=== PATIENT | female | born 1930 | race Caucasian/White ===

== ENCOUNTER 2017-03-20 11:09 | Emergency (ER) | payer MEDICARE, OTHER ==
[2017-03-20 11:16] VITALS: BP 125/65
[2017-03-20] MEDS ORDERED: methylPREDNISolone Sodium Succinate 125 MG/2 ML SDV IVPUSH ONE (11:24)
--- NOTE | 2017-03-20 11:31 | EDM.PDOC ---
ED HPI GENERAL MEDICAL PROBLEM - General Chief Complaint: Allergic Reaction Stated Complaint: allergic reaction Time Seen by Provider: 03/20/17 11:11 Source of Information: Reports: Patient, Family History Limitations: Reports: No Limitations - History of Present Illness INITIAL COMMENTS - FREE TEXT/NARRATIVE: History and physical: History of present illness: [Patient brought to the emergency room by her daughter. Patient complains of itching to her back, chest, and upper extremities for the past several days. She has developed some red itchy while. She has otherwise been well. She has been treated over the past couple of weeks for urinary tract infection with amoxicillin and Cipro. Patient has a history of penicillin allergy and was told to try taking the amoxicillin just once daily. No fever or chills, sore throat or headaches. No lightheadedness or dizziness. She denies chest pain shortness of breath and difficulty breathing. No abdominal pain nausea or vomiting. No other rashes or areas of itching to other parts of her body.] Review of Systems: As per history of present illness and below otherwise all systems reviewed and negative. Past medical history: As per history of present illness and as reviewed below otherwise noncontributory. Surgical history: As per history of present illness and is reviewed below other john noncontributory. Social history: No reported history of drug or alcohol abuse. Family history: As per history of present illness and is reviewed below otherwise noncontributory. Physical exam: HEENT: Atraumatic, normocephalic. Lungs: Clear to auscultation, breath sounds equal bilaterally. Heart: S1-S2, regular rate and rhythm. Abdomen: Soft, nondistended, nontender. Skin: Erythematous welts scattered to chest, back and upper extremities. Consistent in appearance with an allergic type reaction. Neuro: Awake, alert, oriented. Therapeutics: [Solu-Medrol 125 mg IM] Impression: [] Plan: [Discussed with patient that rash is consistent with an allergic reaction. Rx written for Medrol Dosepak sig: take as directed 0 refills. Solu-Medrol 125 mg given IM in the ER. Recommend Claritin or Zyrtec 10 mg daily, Zantac 150 mg twice a day, Benadryl as needed for itching. Follow-up with Dr. crews this week. Daughter is in agreement to this plan.] Definitive disposition and diagnosis is appropriate pending reevaluation and review of above. - Related Data Allergies Allergy/AdvReac Type Severity Reaction Status Date / Time KD Inhibitors Allergy Cough Verified 03/20/17 11:29 latex Allergy Rash Verified 03/20/17 11:29 omeprazole [From Prilosec] Allergy Cough Verified 03/20/17 11:29 omeprazole magnesium Allergy Cough Verified 03/20/17 11:29 [From Prilosec] Penicillins Allergy Rash Verified 03/20/17 11:29 Home Meds: Home Meds Clopidogrel [Plavix] 75 mg PO DAILY 08/11/15 [History] Loratadine [Claritin] 10 mg PO DAILY 08/11/15 [History] Metoprolol Tartrate 50 mg PO BID 08/11/15 [History] Sertraline HCl 50 mg PO DAILY 08/11/15 [History] atorvaSTATin [Lipitor] 5 mg PO DAILY 08/11/15 [History] Amoxicillin 500 mg PO DAILY 03/20/17 [History] Aspirin 325 mg PO DAILY 03/20/17 [History] Ciprofloxacin [Ciprofloxacin HCl] 250 mg PO BID 03/20/17 [History] Melatonin 3 mg PO DAILY 03/20/17 [History] Mirtazapine 15 mg PO BEDTIME 03/20/17 [History] [place]-3/DHA/Epa/Fish Oil [Fish Oil 1,000 mg Softgel] 1 tab PO DAILY 03/20/17 [ History] ED ROS ALLERGIC REACTION - Review of Systems Review Of Systems: ROS reveals no pertinent complaints other than HPI. ED EXAM GENERAL NO PERIP PULSE - Physical Exam Exam: See Below Course - Vital Signs Last Recorded V/S: Last Vital Signs Temp 99.1 F 03/20/17 11:10 Pulse 77 03/20/17 11:10 Resp 24 H 03/20/17 11:10 BP 125/65 03/20/17 11:10 Pulse Ox 98 03/20/17 11:10 - Orders/Labs/Meds Meds: Medications Discontinued Medications Generic Name Dose Route Start Last Admin Trade Name Freq PRN Reason Stop Dose Admin Methylprednisolone Sodium Succinate 125 mg 03/20/17 11:24 03/20/17 11:35 Solu-Medrol IVPUSH 03/20/17 11:25 Not Given ONETIME ONE Methylprednisolone Sodium Succinate 125 mg 03/20/17 11:33 03/20/17 11:36 Solu-Medrol IM 03/20/17 11:34 125 mg ONETIME ONE Administration Departure - Departure Time of Disposition: 11:40 Disposition: Home, Self-Care 01 Condition: Good Clinical Impression: Allergic reaction Qualifiers: Encounter type: initial encounter Qualified Code(s): T78.40XA - Allergy, unspecified, initial encounter - Discharge Information Referrals: Nathaniel Crews MD [Primary Care Provider] - Forms: ED Department Discharge Additional Instructions: The following information is given to patients seen in the emergency department who are being discharged home. This information is to outline your options for follow-up care and provides all patient seen in our emergency department with a follow-up referral. The need for follow-up, as well as the timing and circumstances, are variable depending upon the specifics of each emergency department visit. If you don't have a primary care physician on staff, we will provide you with a referral. We always advise to contact your personal physician following an emergency department visit to inform them of the circumstances of the visit and for follow-up with them and/or the need for any referrals to a consulting specialist. The emergency department will also refer you to a specialist when appropriate. This referral assures that you have the opportunity for follow-up care with a specialist. All of these measures are taken in an effort to provide you with optimal care, which includes your follow-up. Under all circumstances we always encourage you to contact your private physician who remains a resource for coordinating your care. When calling for follow-up care, please make the office aware that this follow-up is from your recent emergency room visit. If for any reason you are refused follow-up please contact the [facility] emergency department at [phone] and ask to speak to the emergency department nurse. [facility] [address] [address] Follow-up with PCP in 48-72 hours. Stop Cipro and amoxicillin. Take medications as prescribed. Return to ER as needed as discussed.
[2017-03-20] MEDS ORDERED: methylPREDNISolone Sodium Succinate 125 MG/2 ML SDV IM ONE (11:33)
== END 2017-03-20 11:51 | disposition home or self-care (01) ==
LOC: CC.ED 11:09
DX: L27.0 Generalized skin eruption due to drugs and medicaments taken internally (principal); T36.0X5A Adverse effect of penicillins, initial encounter; Z91.040 Latex allergy status; Z88.0 Allergy status to penicillin; Z88.8 Allergy status to other drugs, medicaments and biological substances; Z79.899 Other long term (current) drug therapy; Z79.82 Long term (current) use of aspirin
CPT/HCPCS: 96372; 99282; J2930

== ENCOUNTER 2017-04-18 11:03 | Inpatient (IN) | payer MEDICARE, OTHER ==
[2017-04-18] MEDS ORDERED: Temazepam 15 MG Cap PO PRN (12:46)
[2017-04-18] MEDS ORDERED: Acetaminophen 325 MG Tab PO PRN (12:46)
[2017-04-18] MEDS ORDERED: Ondansetron 4 MG Tab.DIS PO PRN (12:46)
[2017-04-18] MEDS ORDERED: Sodium Chloride 0.9% 10 ML Syringe FLUSH PRN (12:46)
[2017-04-18] MEDS ORDERED: Ondansetron 4 MG/2 ML SDV IV PRN (12:46)
[2017-04-18] MEDS ORDERED: Nitroglycerin 0.4 MG Tab.SL SL PRN (12:55)
[2017-04-18] MEDS ORDERED: Enoxaparin 30 MG/0.3 ML Syringe SUBCUT SCH (13:00)
[2017-04-18] MEDS ORDERED: Nitroglycerin 0.4 MG Tab.SL SL SCH (13:00)
[2017-04-18] MEDS: Metoprolol Tartrate 50 MG Tab PO SCH (20:25)
[2017-04-18] MEDS: Mirtazapine 15 MG Tab PO SCH (20:25)
[2017-04-19] MEDS: Sertraline 25 MG Tab PO SCH (08:07)
[2017-04-19] MEDS: Aspirin 81 MG Tab.EC PO SCH (08:08)
[2017-04-19] MEDS: Metoprolol Tartrate 50 MG Tab PO SCH ×2 (08:08→20:16)
[2017-04-19] MEDS: Clopidogrel 75 MG Tab PO SCH (08:09)
[2017-04-19] MEDS: atorvaSTATin 10 MG Tab PO SCH (08:11)
[2017-04-19] MEDS: Lactated Ringers 1,000 ML IV SCH ×2 (08:16→21:46)
[2017-04-19] MEDS: cefTRIAXone 1 GM Vial IVPUSH SCH (08:18)
--- NOTE | 2017-04-19 13:01 | PCM.PN ---
- General Info Date of Service: 04/19/17 Admission Dx/Problem (Free Text): UTI Weakness Functional Status: Reports: Pain Controlled, Tolerating Diet, Ambulating - Review of Systems General: Reports: Weakness, Fatigue. Denies: Fever HEENT: Reports: No Symptoms Pulmonary: Denies: Shortness of Breath, Cough, Wheezing Cardiovascular: Denies: Chest Pain, Edema, Lightheadedness Gastrointestinal: Denies: Abdominal Pain, Decreased Appetite, Diarrhea, Nausea, Vomiting Genitourinary: Reports: No Symptoms Musculoskeletal: Reports: No Symptoms Skin: Reports: No Symptoms Neurological: Reports: No Symptoms Psychiatric: Reports: Depression - Patient Data Vitals - Most Recent: Last Vital Signs Temp 97.5 F 04/19/17 07:44 Pulse 79 04/19/17 08:08 Resp 18 04/19/17 07:44 BP 165/95 H 04/19/17 08:08 Pulse Ox 93 L 04/19/17 07:44 Weight - Most Recent: 112 lb 12.8 oz I&O - Last 24 Hours: Intake & Output 04/18/17 04/19/17 04/19/17 22:59 06:59 14:59 Intake Total 250 Output Total 150 350 Balance -150 -100 Lab Results Last 24 Hours: Laboratory Results - last 24 hr 04/18/17 04/18/17 04/18/17 Range/Units 12:46 13:01 13:01 WBC 9.0 (5.0-10.0) 10^3/uL RBC 4.35 (4.00-5.50) 10^6/uL Hgb 13.0 (12.0-16.0) g/dL Hct 40.3 (37.0-47.0) % MCV 92.6 (82.0-94.0) fL MCH 29.9 (27.0-32.0) pg MCHC 32.3 L (33.0-38.0) g/dL RDW Coeff of Marcelo 14.9 (11.0-15.0) % Plt Count 354 (150-400) 10^3/uL Neut % (Auto) 79.1 (35-85) % Lymph % (Auto) 11.2 (10-55) % [place] % (Auto) 7.1 (0-16) % Eos % (Auto) 2.3 (0-5) % Baso % (Auto) 0.3 (0-3) % Neut # (Auto) 7.08 H (1.80-7.00) 10^3/uL Lymph # (Auto) 1.00 (1.00-4.80) 10^3/uL [place] # (Auto) 0.64 (0.00-0.80) 10^3/uL Eos # (Auto) 0.21 (0.00-0.45) 10^3/uL Baso # (Auto) 0.03 10^3/uL Sodium 140 (136-145) mEq/L Potassium 4.2 (3.5-5.0) mEq/L Chloride 105 (98-106) mEq/L Carbon Dioxide 27 (21-32) mmol/L BUN 19 H (7-18) mg/dL Creatinine 1.0 (0.6-1.0) mg/dL Est Cr Clr Drug Dosing 30.81 mL/min Estimated GFR (MDRD) 52 L (>=60) mL/min Glucose 114 H (75-99) mg/dL Calcium 9.1 (8.4-10.1) mg/dL Urine Color Yellow (YELLOW) Urine Appearance Clear (CLEAR) Urine pH 7.0 (4.5-8.0) Ur Specific [place] 1.012 (1.003-1.020) Urine Protein Negative (NEGATIVE) mg/dL Urine Glucose (UA) Negative (NEGATIVE) mg/dL Urine Ketones Negative (NEGATIVE) mg/dL Urine Occult Blood Small H (NEGATIVE) Urine Nitrite Negative (NEGATIVE) Urine Bilirubin Negative (NEGATIVE) Urine Urobilinogen 0.2 (0.2-1.0) EU/dL Ur Leukocyte Esterase Negative (NEGATIVE) Urine RBC 5-10 H (0-5) /HPF Urine WBC 0-5 (0-5) /HPF Ur Squamous Epith Cells Occasional H (NOT SEEN) /HPF Urine Bacteria Occasional H (NOT SEEN) /HPF Med Orders - Current: Current Medications Acetaminophen (Tylenol) 650 mg PO Q4H PRN PRN Reason: Pain (Mild 1-3)/fever Aspirin (Halfprin) 81 mg PO DAILY SKIP Last Admin: 04/19/17 08:08 Dose: 81 mg Atorvastatin Calcium (Lipitor) 5 mg PO DAILY [facility] Last Admin: 04/19/17 08:11 Dose: 5 mg Ceftriaxone Sodium (Rocephin) 1 gm IVPUSH Q24H [facility] Last Admin: 04/19/17 08:18 Dose: 1 gm Clopidogrel Bisulfate (Plavix) 75 mg PO DAILY [facility] Last Admin: 04/19/17 08:09 Dose: 75 mg Enoxaparin Sodium (Lovenox) 30 mg SUBCUT Q24H [facility] Lactated Ringer's (Ringers, Lactated) 1,000 mls @ 75 mls/hr IV ASDIRECTED [facility] Last Admin: 04/19/17 08:16 Dose: 75 mls/hr Metoprolol Tartrate (Lopressor) 50 mg PO BID [facility] Last Admin: 04/19/17 08:08 Dose: 50 mg Mirtazapine (Remeron) 15 mg PO BEDTIME [facility] Last Admin: 04/18/17 20:25 Dose: 15 mg Nitroglycerin (Nitrostat) 0.4 mg SL ASDIRECTED PRN PRN Reason: CHEST PAIN Ondansetron HCl (Zofran Odt) 4 mg PO Q4H PRN PRN Reason: nausea, able to take PO Ondansetron HCl (Zofran) 4 mg IV Q4H PRN PRN Reason: Nausea/Vomiting Sertraline HCl (Zoloft) 50 mg PO DAILY [facility] Last Admin: 04/19/17 08:07 Dose: 50 mg Sodium Chloride (Saline Flush) 10 ml FLUSH ASDIRECTED PRN PRN Reason: Keep Vein Open Temazepam (Restoril) 15 mg PO BEDTIME PRN PRN Reason: Sleep Discontinued Medications Enoxaparin Sodium (Lovenox) 30 mg SUBCUT Q24H [facility] Last Admin: 04/18/17 14:11 Dose: 30 mg Nitroglycerin (Nitrostat) 0.4 mg SL ASDIRECTED [facility] - Exam General: Alert, Oriented HEENT: Mucous Membr. Moist/[place] Neck: Supple Lungs: Clear to Auscultation, Normal Respiratory Effort Cardiovascular: Regular Rate, Regular Rhythm, Murmurs GI/Abdominal Exam: Normal Bowel Sounds, Soft, Non-Tender Back Exam: Normal Inspection Extremities: Normal Inspection, No Pedal Edema Skin: Warm, Dry Neurological: No New Focal Deficit - Problem List & Annotations (1) UTI (urinary tract infection) SNOMED Code(s): 37678033 Code(s): N39.0 - URINARY TRACT INFECTION, SITE NOT SPECIFIED Status: Acute Priority: High Current Visit: Yes Qualifiers: Urinary tract infection type: acute cystitis - Problem List Review Problem List Initiated/Reviewed/Updated: Yes - My Orders Last 24 Hours: My Active Orders 04/18/17 12:46 Patient Status [ADT] Routine Oxygen Therapy [RC] .PRN Up With Assistance [RC] .PRN Vital Signs [RC] 0000,0400,0800,1200,1600,2000 PT Evaluation and Treatment [CONS] Routine Acetaminophen [Tylenol] 650 mg PO Q4H PRN Ondansetron [Zofran ODT] 4 mg PO Q4H PRN Ondansetron [Zofran] 4 mg IV Q4H PRN Sodium Chloride 0.9% [Saline Flush] 10 ml FLUSH ASDIRECTED PRN Temazepam [Restoril] 15 mg PO BEDTIME PRN Saline Lock Insert [OM.PC] Routine Resuscitation Status Routine 04/18/17 12:47 Intake and Output [RC] 0600,1800 04/18/17 12:55 Nitroglycerin [Nitrostat] 0.4 mg SL ASDIRECTED PRN 04/18/17 20:00 Metoprolol Tartrate [Lopressor] 50 mg PO BID Mirtazapine [Remeron] 15 mg PO BEDTIME 04/18/17 Lunch Regular Diet [DIET] 04/19/17 07:45 Lactated Ringers [Ringers, Lactated] 1,000 ml IV ASDIRECTED 04/19/17 08:00 Aspirin [Halfprin] 81 mg PO DAILY Clopidogrel [Plavix] 75 mg PO DAILY Sertraline [Zoloft] 50 mg PO DAILY atorvaSTATin [Lipitor] 5 mg PO DAILY cefTRIAXone [Rocephin] 1 gm IVPUSH Q24H 04/19/17 20:00 Enoxaparin [Lovenox] 30 mg SUBCUT Q24H - Assessment Assessment:: UTI Weakness - Plan Plan:: Patient is stable today. Denies any complaints. Afebrile. Blood pressure is elevated today at 165/95. Tolerating meals. Voiding frequently. Labs stable. Will continue with IV fluids today and Rocephin. Probable disharge in am.
[2017-04-19] MEDS ORDERED: Enoxaparin 30 MG/0.3 ML Syringe SUBCUT SCH (20:00)
[2017-04-19] MEDS: Mirtazapine 15 MG Tab PO SCH (20:16)
[2017-04-20] MEDS: Sertraline 25 MG Tab PO SCH (07:46)
[2017-04-20] MEDS: Clopidogrel 75 MG Tab PO SCH (07:46)
[2017-04-20] MEDS: Aspirin 81 MG Tab.EC PO SCH (07:46)
[2017-04-20] MEDS: Metoprolol Tartrate 50 MG Tab PO SCH (07:46)
[2017-04-20] MEDS: cefTRIAXone 1 GM Vial IVPUSH SCH (07:47)
[2017-04-20] MEDS: atorvaSTATin 10 MG Tab PO SCH (08:36)
[2017-04-20 15:59] VITALS: BP 160/92
--- NOTE | 2017-04-22 22:15 | PCM.DCSUM1 ---
Discharge Summary - Hospital Course Free Text/Narrative:: Patient admitted from clinic due to weakness, UTI. Patient has been plaqued by frequent UTIs for the last 3 months. Has been on daily prophylactic antibiotics but still seeing these often. Did have a urine done about 5 days prior to admission, started on Macrobid but daughter felt she wasn't responding well although was sensitive to the med per culture. She was weak. Not eating well. Had been afebrile. - Discharge Data Discharge Date: 04/20/17 Discharge Disposition: Home, Self-Care 01 Condition: Good - Discharge Diagnosis/Problem(s) (1) UTI (urinary tract infection) SNOMED Code(s): 88958775 ICD Code: N39.0 - URINARY TRACT INFECTION, SITE NOT SPECIFIED Status: Acute Priority: High Qualifiers: Urinary tract infection type: acute cystitis - Patient Summary/Data Complications: none Consults: Consultations 04/18/17 12:46 PT Evaluation and Treatment [CONS] Routine Hospital Course: Patient has been stable through the hospital stay. She has remained afebrile. Tolerating meals. Was given IV fluids and IV Rocephin. Up and ambulatory with staff. Using walker. Labs stable. - Patient Instructions Diet: Heart Healthy Diet Activity: As Tolerated Notify Provider of: Fever, Increased Pain, Nausea and/or Vomiting - Discharge Plan Prescriptions/Med Rec: Cefuroxime [Ceftin] 250 mg PO BID #20 tablet Home Medications: Home Meds Clopidogrel [Plavix] 75 mg PO DAILY 08/11/15 [History] Metoprolol Tartrate 50 mg PO BID 08/11/15 [History] Sertraline HCl 50 mg PO DAILY 08/11/15 [History] atorvaSTATin [Lipitor] 5 mg PO DAILY 08/11/15 [History] Mirtazapine 15 mg PO BEDTIME 03/20/17 [History] Aspirin [Halfprin] 81 mg PO DAILY 04/18/17 [History] Cranberry Fruit [Cranberry] 2 tab PO DAILY 04/18/17 [History] Melatonin 5 mg PO DAILY 04/18/17 [History] Multivitamin [Daily Alexander] 1 each PO DAILY 04/18/17 [History] Nitroglycerin [Nitrostat] 0.4 mg SL ASDIRECTED 04/18/17 [History] Cefuroxime [Ceftin] 250 mg PO BID #20 tablet 04/20/17 [Rx] Referrals: Nathaniel Crews MD [Primary Care Provider] - (Follow up with Dr. Crews as needed ) - Discharge Summary/Plan Comment DC Time >30 min.: No Discharge Summary/Plan Comment: Discharge home with daughter. Continue to push fluids. Ceftin for UTI over next 10 days. Follow up with Dr. Crews in 2 weeks. - General Info Date of Service: 04/20/17 Admission Dx/Problem (Free Text: UTI Weakness Functional Status: Reports: Pain Controlled, Tolerating Diet, Ambulating - Review of Systems General: Reports: Weakness. Denies: Fever, Fatigue HEENT: Reports: No Symptoms Pulmonary: Denies: Shortness of Breath, Cough, Wheezing Cardiovascular: Denies: Chest Pain, Edema, Lightheadedness Gastrointestinal: Denies: Decreased Appetite, Nausea, Vomiting Genitourinary: Reports: Frequency Musculoskeletal: Reports: No Symptoms Skin: Reports: No Symptoms Neurological: Reports: Confusion (oriented to person and place) - Patient Data Vitals - Most Recent: Last Vital Signs Temp 97.4 F 04/20/17 15:59 Pulse 71 04/20/17 15:59 Resp 16 04/20/17 15:59 BP 160/92 H 04/20/17 15:59 Pulse Ox 94 L 04/20/17 15:59 Weight - Most Recent: 112 lb 12.8 oz Med Orders - Current: Current Medications Discontinued Medications Acetaminophen (Tylenol) 650 mg PO Q4H PRN PRN Reason: Pain (Mild 1-3)/fever Aspirin (Halfprin) 81 mg PO DAILY [facility] Last Admin: 04/20/17 07:46 Dose: 81 mg Atorvastatin Calcium (Lipitor) 5 mg PO DAILY [facility] Last Admin: 04/20/17 08:36 Dose: 5 mg Ceftriaxone Sodium (Rocephin) 1 gm IVPUSH Q24H [facility] Last Admin: 04/20/17 07:47 Dose: 1 gm Clopidogrel Bisulfate (Plavix) 75 mg PO DAILY [facility] Last Admin: 04/20/17 07:46 Dose: 75 mg Enoxaparin Sodium (Lovenox) 30 mg SUBCUT Q24H [facility] Last Admin: 04/18/17 14:11 Dose: 30 mg Enoxaparin Sodium (Lovenox) 30 mg SUBCUT Q24H [facility] Last Admin: 04/19/17 20:16 Dose: 30 mg Lactated Ringer's (Ringers, Lactated) 1,000 mls @ 75 mls/hr IV ASDIRECTED [facility] Last Admin: 04/19/17 21:46 Dose: 75 mls/hr Metoprolol Tartrate (Lopressor) 50 mg PO BID [facility] Last Admin: 04/20/17 07:46 Dose: 50 mg Mirtazapine (Remeron) 15 mg PO BEDTIME [facility] Last Admin: 04/19/17 20:16 Dose: 15 mg Nitroglycerin (Nitrostat) 0.4 mg SL ASDIRECTED [facility] Nitroglycerin (Nitrostat) 0.4 mg SL ASDIRECTED PRN PRN Reason: CHEST PAIN Ondansetron HCl (Zofran Odt) 4 mg PO Q4H PRN PRN Reason: nausea, able to take PO Ondansetron HCl (Zofran) 4 mg IV Q4H PRN PRN Reason: Nausea/Vomiting Sertraline HCl (Zoloft) 50 mg PO DAILY [facility] Last Admin: 04/20/17 07:46 Dose: 50 mg Sodium Chloride (Saline Flush) 10 ml FLUSH ASDIRECTED PRN PRN Reason: Keep Vein Open Temazepam (Restoril) 15 mg PO BEDTIME PRN PRN Reason: Sleep - Exam General: Reports: Alert, Oriented (to person and place) HEENT: Reports: Mucous Membr. Moist/[place] Neck: Reports: Supple Lungs: Reports: Clear to Auscultation, Normal Respiratory Effort Cardiovascular: Reports: Regular Rate, Regular Rhythm, Murmurs GI/Abdominal Exam: Normal Bowel Sounds, Soft, Non-Tender Extremities: Normal Inspection, No Pedal Edema Skin: Reports: Warm, Dry Neurological: Reports: No New Focal Deficit Psy/Mental Status: Reports: Alert, Normal Affect *Q Meaningful Use (DIS) - VTE *Q VTE Criteria *Q: - Stroke *Q Stroke Criteria *Q: - AMI *Q AMI Criteria *Q:
== END 2017-04-20 16:04 | disposition home or self-care (01) | DRG 690 ==
LOC: UNDOADMIN 11:03 → CC.MS 11:03
PROVIDERS: ADMIT Family Medicine; ATTEND Family Medicine
DX: N39.0 Urinary tract infection, site not specified (principal); R53.1 Weakness; Z88.8 Allergy status to other drugs, medicaments and biological substances; Z79.899 Other long term (current) drug therapy
CPT/HCPCS: 36415; 80048; 81001; 85025; 97110-GP; 97161-GP; 97530-GP; A9270-GY; J0696; J1650; J7120

== ENCOUNTER 2017-10-29 00:15 | Emergency (ER) | payer MEDICARE, OTHER ==
[~2017-10-29 00:15] MED LIST: Furosemide 40 MG/4 ML VIAL ONE
[2017-10-29] MEDS ORDERED: Morphine 2 MG/ML Syringe ONE (00:34)
[2017-10-29] MEDS ORDERED: Morphine 2 MG/ML Syringe IVPUSH ONE (00:44)
[2017-10-29] MEDS ORDERED: Furosemide 40 MG/4 ML VIAL IVPUSH ONE (00:45)
--- NOTE | 2017-10-29 01:02 | EDM.PDOC ---
ED HPI GENERAL MEDICAL PROBLEM - General Chief Complaint: General Stated Complaint: SOB Time Seen by Provider: 10/29/17 00:06 Source of Information: Reports: EMS, Family History Limitations: Reports: Altered Mental Status, Respiratory Distress - History of Present Illness INITIAL COMMENTS - FREE TEXT/NARRATIVE: Patient presents to ER with complaints of shortness of breath. Daughter states it came on quite suddenly this evening. At 9 pm, she was feeling good. On EMS arrival, patient had moist breath sounds, oxygen sat 79%. Blood pressure high. Sats did increase with 6 liters by nasal cannula. Daughter relates that she did fall 2 days ago, laid on the floor of her bedroom overnight until she went to help her in the am. She has seemed her normal self since that time. No change in mental status from her norm. Does have dementia, short term memory is poor. She has been eating in small amounts which is also her usual. She has a history of CAD, 5 stents placed in the past. Patient has not been offering any complaints prior to this of chest pain, shortness of breath, fever , nausea or vomiting. Has chronic UTIs. Daughter states that since they started a probiotic, she has done better with that. Onset: Sudden Duration: Hour(s): Location: Reports: Chest, Generalized Severity: Severe Associated Symptoms: Reports: Confusion, Cough, cough w sputum, Shortness of Breath, Weakness, Other (decreased LOC per EMS). Denies: Chest Pain, Nausea/ Vomiting - Related Data Allergies Allergy/AdvReac Type Severity Reaction Status Date / Time KD Inhibitors Allergy Cough Verified 10/29/17 02:34 latex Allergy Rash Verified 10/29/17 02:34 omeprazole [From Prilosec] Allergy Cough Verified 10/29/17 02:34 omeprazole magnesium Allergy Cough Verified 10/29/17 02:34 [From Prilosec] Penicillins Allergy Rash Verified 10/29/17 02:34 Home Meds: Home Meds Clopidogrel [Plavix] 75 mg PO DAILY 08/11/15 [History] Metoprolol Tartrate 50 mg PO BID 08/11/15 [History] Sertraline HCl 50 mg PO DAILY 08/11/15 [History] atorvaSTATin [Lipitor] 5 mg PO DAILY 08/11/15 [History] Mirtazapine 15 mg PO BEDTIME 03/20/17 [History] Aspirin [Halfprin] 81 mg PO DAILY 04/18/17 [History] Cranberry Fruit [Cranberry] 2 tab PO DAILY 04/18/17 [History] Melatonin 5 mg PO DAILY 04/18/17 [History] Multivitamin [Daily Alexander] 1 each PO DAILY 04/18/17 [History] Nitroglycerin [Nitrostat] 0.4 mg SL ASDIRECTED 04/18/17 [History] Cefuroxime [Ceftin] 250 mg PO BID #20 tablet 04/20/17 [Rx] Past Medical History HEENT History: Reports: Cataract Cardiovascular History: Reports: High Cholesterol, Hypertension, Stents Gastrointestinal History: Reports: Chronic Constipation, GERD Genitourinary History: Reports: UTI, 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 Denies: Fever, Chills HEENT: Reports: Rhinitis. Denies: Ear Pain, Sinus Problem, Throat Pain Respiratory: Reports: Shortness of Breath, Cough, Sputum Cardiovascular: Denies: Chest Pain, Edema, Lightheadedness Endocrine: Reports: Fatigue GI/Abdominal: Reports: Decreased Appetite. Denies: Abdominal Pain, Nausea, Vomiting : Reports: No Symptoms Musculoskeletal: Reports: No Symptoms Skin: Reports: Pallor Neurological: Reports: Confusion ED EXAM, GENERAL - Physical Exam Exam: See Below Exam Limited By: Altered Mental Status (does answer yes/no. Knows daughter's name. Disoriented to time and place) General Appearance: WD/WN, Moderate Distress Ears: Normal External Exam, Normal TMs Nose: Normal Inspection, Normal Mucosa, No Blood Throat/Mouth: Normal Inspection, Normal Oropharynx Head: Normocephalic Neck: Normal Inspection, Supple, Other (distended neck veins) Respiratory/Chest: Respiratory Distress, Decreased Breath Sounds, Rales Cardiovascular: Irregularly Irregular GI/Abdominal: Normal Bowel Sounds, Soft, Non-Tender Extremities: Normal Inspection, Pedal Edema (trace) Neurological: Alert, Oriented (oriented to self) Skin Exam: Warm, Dry Course - Vital Signs Last Recorded V/S: Last Vital Signs Temp 98.2 F 10/29/17 00:30 Pulse 79 10/29/17 02:20 Resp 22 H 10/29/17 02:20 BP 153/84 H 10/29/17 02:20 Pulse Ox 98 10/29/17 02:20 - Orders/Labs/Meds Orders: Active Orders 24 hr Category Date Time Status Ang Chest [CT] Routine Exams 10/29/17 Taken Chest 1V Frontal [CR] Stat Exams 10/29/17 00:30 Taken CULTURE URINE [RM] Stat Lab 10/29/17 01:17 Ordered Labs: Laboratory Tests 10/29/17 10/29/17 10/29/17 Range/Units 00:30 00:30 00:30 WBC 18.5 H (5.0-10.0) 10^3/uL RBC 4.13 (4.00-5.50) 10^6/uL Hgb 12.3 (12.0-16.0) g/dL Hct 38.8 (37.0-47.0) % MCV 93.9 (82.0-94.0) fL MCH 29.8 (27.0-32.0) pg MCHC 31.7 L (33.0-38.0) g/dL RDW Coeff of Marcelo 15.6 H (11.0-15.0) % Plt Count 404 H (150-400) 10^3/uL Neut % (Auto) 87.3 H (35-85) % Lymph % (Auto) 7.0 L (10-55) % Real % (Auto) 3.8 (0-16) % Eos % (Auto) 1.7 (0-5) % Baso % (Auto) 0.2 (0-3) % Neut # (Auto) 16.13 H (1.80-7.00) 10^3/uL Lymph # (Auto) 1.29 (1.00-4.80) 10^3/uL Real # (Auto) 0.71 (0.00-0.80) 10^3/uL Eos # (Auto) 0.31 (0.00-0.45) 10^3/uL Baso # (Auto) 0.04 10^3/uL D-Dimer, Quantitative 5.70 H (0.00-0.50) Sodium 139 (136-145) mEq/L Potassium 4.4 (3.5-5.0) mEq/L Chloride 102 (98-106) mEq/L Carbon Dioxide 26 (21-32) mmol/L BUN 23 H (7-18) mg/dL Creatinine 1.1 H (0.6-1.0) mg/dL Est Cr Clr Drug Dosing TNP Estimated GFR (MDRD) 47 L (>=60) mL/min Glucose 289 H D (75-99) mg/dL Calcium 8.6 (8.4-10.1) mg/dL Total Bilirubin 0.5 (0.0-1.0) mg/dL AST 60 H (15-37) U/L ALT 49 (12-78) U/L Alkaline Phosphatase 117 H (46-116) U/L Lactate Dehydrogenase 223 H (100-190) U/L Creatine Kinase 32 (21-215) U/L Troponin I < 0.017 (0.00-0.06) ng/mL C-Reactive Protein 3.7 H (0.2-0.8) mg/dL NT-Pro-B Natriuret Pep 4919 H (0-1000) pg/mL Total Protein 7.3 (6.4-8.2) g/dL Albumin 2.7 L (3.4-5.0) g/dL Urine Color (YELLOW) Urine Appearance (CLEAR) Urine pH (4.5-8.0) Ur Specific [place] (1.003-1.020) Urine Protein (NEGATIVE) mg/dL Urine Glucose (UA) (NEGATIVE) mg/dL Urine Ketones (NEGATIVE) mg/dL Urine Occult Blood (NEGATIVE) Urine Nitrite (NEGATIVE) Urine Bilirubin (NEGATIVE) Urine Urobilinogen (0.2-1.0) EU/dL Ur Leukocyte Esterase (NEGATIVE) Urine RBC (0-5) /HPF Urine WBC (0-5) /HPF Urine Bacteria (NOT SEEN) /HPF 10/29/17 Range/Units 00:35 WBC (5.0-10.0) 10^3/uL RBC (4.00-5.50) 10^6/uL Hgb (12.0-16.0) g/dL Hct (37.0-47.0) % MCV (82.0-94.0) fL MCH (27.0-32.0) pg MCHC (33.0-38.0) g/dL RDW Coeff of Marcelo (11.0-15.0) % Plt Count (150-400) 10^3/uL Neut % (Auto) (35-85) % Lymph % (Auto) (10-55) % Real % (Auto) (0-16) % Eos % (Auto) (0-5) % Baso % (Auto) (0-3) % Neut # (Auto) (1.80-7.00) 10^3/uL Lymph # (Auto) (1.00-4.80) 10^3/uL Real # (Auto) (0.00-0.80) 10^3/uL Eos # (Auto) (0.00-0.45) 10^3/uL Baso # (Auto) 10^3/uL D-Dimer, Quantitative (0.00-0.50) Sodium (136-145) mEq/L Potassium (3.5-5.0) mEq/L Chloride (98-106) mEq/L Carbon Dioxide (21-32) mmol/L BUN (7-18) mg/dL Creatinine (0.6-1.0) mg/dL Est Cr Clr Drug Dosing Estimated GFR (MDRD) (>=60) mL/min Glucose (75-99) mg/dL Calcium (8.4-10.1) mg/dL Total Bilirubin (0.0-1.0) mg/dL AST (15-37) U/L ALT (12-78) U/L Alkaline Phosphatase (46-116) U/L Lactate Dehydrogenase (100-190) U/L Creatine Kinase (21-215) U/L Troponin I (0.00-0.06) ng/mL C-Reactive Protein (0.2-0.8) mg/dL NT-Pro-B Natriuret Pep (0-1000) pg/mL Total Protein (6.4-8.2) g/dL Albumin (3.4-5.0) g/dL Urine Color Yellow (YELLOW) Urine Appearance Cloudy (CLEAR) Urine pH 6.0 (4.5-8.0) Ur Specific [place] >= 1.030 H (1.003-1.020) Urine Protein 100 H (NEGATIVE) mg/dL Urine Glucose (UA) Negative (NEGATIVE) mg/dL Urine Ketones Negative (NEGATIVE) mg/dL Urine Occult Blood Moderate H (NEGATIVE) Urine Nitrite Positive H (NEGATIVE) Urine Bilirubin Negative (NEGATIVE) Urine Urobilinogen 0.2 (0.2-1.0) EU/dL Ur Leukocyte Esterase Moderate H (NEGATIVE) Urine RBC 5-10 H (0-5) /HPF Urine WBC Packed H (0-5) /HPF Urine Bacteria Few H (NOT SEEN) /HPF Meds: Medications Discontinued Medications Generic Name Dose Route Start Last Admin Trade Name Freq PRN Reason Stop Dose Admin Furosemide Confirm 10/29/17 00:14 10/29/17 00:47 Lasix Administered 10/29/17 00:15 Not Given Dose 40 mg .ROUTE .STK-MED ONE Furosemide 40 mg 10/29/17 00:45 10/29/17 00:46 Lasix IVPUSH 10/29/17 00:46 40 mg ONETIME ONE Administration Iopamidol 100 ml 10/29/17 01:41 10/29/17 02:00 Isovue-370 (76%) IVPUSH 10/29/17 01:42 100 ml ONETIME ONE Administration Morphine Sulfate Confirm 10/29/17 00:34 10/29/17 00:47 Morphine Administered 10/29/17 00:35 Not Given Dose 2 mg .ROUTE .STK-MED ONE Morphine Sulfate 1 mg 10/29/17 00:44 10/29/17 00:46 Morphine IVPUSH 10/29/17 00:45 1 mg ONETIME ONE Administration - Re-Assessments/Exams Free Text/Narrative Re-Assessment/Exam: 10/29/17 01:15 Spoke with daughter in attendance as well as daughter Juana by phone about code status and treatment plan. Family desires her to be a code 1 and requesting for her to be transferred where ventilatory support is available if needed. Aware of meds given, labs but improvement in status at this point versus arrival. Contacted [facility], spoke with Dr. Fairbanks about patient status. Agreed to accept the patient. Risks and benefits discussed with daughter Sergo. Risk of transfer includes ambulance crash, worsening status and even enroute. Benefits of transfer include more intensive cardiac care and ventilatory support if needed. risks of non-transfer include no specialized care, ventilator, worsening status. Benefits of nontransfer include being close to home with usual care provider and familiar environment. Family agrees to transfer. 10/29/17 01:56 CTA of chest done to rule out PE. Patient tolerated well. Departure - Departure Time of Disposition: 01:56 Disposition: DC/Tfer to Acute Hospital 02 Condition: Poor Clinical Impression: PE, Pulmonary embolism, CHF, Congestive heart failure UTI (urinary tract infection) Qualifiers: Urinary tract infection type: acute cystitis - Discharge Information Referrals: Nathaniel Crews MD [Primary Care Provider] - Forms: ED Department Discharge Additional Instructions: Transfer ALS to [facility], accepting physician Dr. Fairbanks. - My Orders Last 24 Hours: My Active Orders 10/29/17 Ang Chest [CT] Routine 10/29/17 00:30 Chest 1V Frontal [CR] Stat 10/29/17 01:17 CULTURE URINE [RM] Stat - Assessment/Plan Last 24 Hours: My Active Orders 10/29/17 Ang Chest [CT] Routine 10/29/17 00:30 Chest 1V Frontal [CR] Stat 10/29/17 01:17 CULTURE URINE [RM] Stat
[2017-10-29 01:03] LABS: CHLORIDE,CL 102 mEq/L (98-106); SODIUM,NA 139 mEq/L (136-145)
[2017-10-29] MEDS ORDERED: Iopamidol 755 Mg/ML 100 ML Bottle IVPUSH ONE (01:41)
[2017-10-29 02:21] VITALS: BP 153/84
== END 2017-10-29 02:55 ==
LOC: CC.ED 00:15
DX: I26.99 Other pulmonary embolism without acute cor pulmonale (principal); I11.0 Hypertensive heart disease with heart failure; I50.9 Heart failure, unspecified; N30.00 Acute cystitis without hematuria; Z88.8 Allergy status to other drugs, medicaments and biological substances; Z91.040 Latex allergy status; Z88.0 Allergy status to penicillin; Z79.899 Other long term (current) drug therapy; E78.00 Pure hypercholesterolemia, unspecified; K21.9 Gastro-esophageal reflux disease without esophagitis
CPT/HCPCS: 36415; 71045; 71275; 80053; 81001; 82550; 83615; 83880; 84484; 85025; 85379; 86140; 87086; 87088; 87186; 93005; 96374; 96375; 99285; J1940; J2270; Q9967

== ENCOUNTER 2017-12-17 20:45 | Inpatient (IN) | payer MEDICARE, OTHER ==
--- NOTE | 2017-12-17 21:02 | EDM.PDOC ---
ED HPI GENERAL MEDICAL PROBLEM - General Chief Complaint: General Stated Complaint: EMESIS AND SOB Time Seen by Provider: 12/17/17 21:02 Source of Information: Reports: Patient, Family History Limitations: Reports: No Limitations - History of Present Illness INITIAL COMMENTS - FREE TEXT/NARRATIVE: Kris is a pleasant 87 year old female with PMH of CHF, pulmonary emboli, CVA, dementia, GERD, hypertension, and hyperlipidemia who presents to the ED via [facility] with c/o vomiting and shortness of breath. Daughter reports she woke up this morning and was c/o an upset stomach. She reports she did vomit twice this morning. Throughout the day daughter reports she was c/o "terrible stomach pain." She reports since she got home from the assisted she has had terrible diarrhea. Daughter reports it has a very distinct smell to it. Daughter reports she has also had a productive cough today. At supper time, when she was eating, she began coughing and got very short of breath. Daughter called EMS. By the time EMS arrived she was breathing easier and able to talk. Associated symptoms include chills, weakness, fatigue, decreased appetite, nausea, vomting, diarrhea, abdominal discomfort, shortness of breath. She denies any fever, dysuria, urinary frequency, chest pain, dizziness, confusion. Daughter reports she has had diarrhea for a week and has not been drinking much. She feels patient is slightly confused due to dehydration. She tried Alanis Carter today to see if that would help her stomach. Daughter moved home to be patient's career placement services counselor, so she has been living with her as of recent. She was transferred out of [place] about a month ago to [facility] for CHF. After about a week hospitalized, she then spent 3 weeks at [facility] transitional care unit. She returned home a week ago. She was supposed to have an appointment with Dr. Crews today, but "didn't feel up to the drive to [facility]." Onset Date: 12/10/17 Duration: Getting Worse Location: Reports: Abdomen Associated Symptoms: Reports: Cough, cough w sputum, Fever/Chills, Loss of Appetite, Nausea/Vomiting, Shortness of Breath, Weakness. Denies: Confusion, Chest Pain, Diaphoresis, Headaches, Malaise, Rash, Seizure, Syncope Treatments SOFTWARE TEST MANAGER: Reports: Other (see below) (Alanis Carter ) - Related Data Allergies Allergy/AdvReac Type Severity Reaction Status Date / Time KD Inhibitors Allergy Cough Verified 12/17/17 21:06 latex Allergy Rash Verified 12/17/17 21:06 omeprazole [From Prilosec] Allergy Cough Verified 12/17/17 21:06 omeprazole magnesium Allergy Cough Verified 12/17/17 21:06 [From Prilosec] Penicillins Allergy Rash Verified 12/17/17 21:06 Home Meds: Home Meds Metoprolol Tartrate 50 mg PO BID 08/11/15 [History] Sertraline HCl 50 mg PO DAILY 08/11/15 [History] atorvaSTATin [Lipitor] 5 mg PO DAILY 08/11/15 [History] Mirtazapine 15 mg PO BEDTIME 03/20/17 [History] Cranberry Fruit [Cranberry] 2 tab PO DAILY 04/18/17 [History] Melatonin 5 mg PO DAILY 04/18/17 [History] Multivitamin [Daily Alexander] 1 each PO DAILY 04/18/17 [History] Nitroglycerin [Nitrostat] 0.4 mg SL ASDIRECTED 04/18/17 [History] Pantoprazole [ProTONIX] 40 mg PO DAILY 12/17/17 [History] Warfarin [Coumadin] 0.5 mg PO ASDIRECTED 12/17/17 [History] Warfarin [Coumadin] 1 mg PO DAILY 12/17/17 [History] Past Medical History HEENT History: Reports: Cataract Cardiovascular History: Reports: High Cholesterol, Hypertension, Stents Gastrointestinal History: Reports: Chronic Constipation, GERD Genitourinary History: Reports: UTI, 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: Neurological History: Reports: CVA, TIA Psychiatric History: Reports: Depression - Past Surgical History HEENT Surgical History: Reports: Cataract Surgery GI Surgical History: Reports: Appendectomy Female Surgical History: Reports: Hysterectomy Social & Family History - Family History Family Medical History: Noncontributory - Tobacco Use Smoking Status *Q: Never Smoker - Caffeine Use Caffeine Use: Reports: None - Recreational Drug Use Recreational Drug Use: No ED ROS GENERAL - Review of Systems Review Of Systems: See Below Constitutional: Reports: Chills, Weakness, Fatigue, Decreased Appetite, Weight Loss. Denies: Fever HEENT: Reports: No Symptoms Respiratory: Reports: Shortness of Breath, Cough, Sputum. Denies: Wheezing, Pleuritic Chest Pain, Hemoptysis Cardiovascular: Reports: Dyspnea on Exertion, Orthopnea. Denies: Chest Pain, Edema, Lightheadedness, Palpitations Endocrine: Reports: Fatigue GI/Abdominal: Reports: Abdominal Pain, Diarrhea, Decreased Appetite, Nausea, Vomiting. Denies: Black Stool, Bloody Stool, Hematemesis, Hematochezia, Melena : Reports: No Symptoms. Denies: Dysuria, Frequency, Urgency Musculoskeletal: Reports: No Symptoms Skin: Reports: No Symptoms Neurological: Reports: Confusion, Weakness. Denies: Dizziness Psychiatric: Reports: No Symptoms Hematologic/Lymphatic: Reports: No Symptoms Immunologic: Reports: No Symptoms ED EXAM, GENERAL - Physical Exam Exam: See Below Exam Limited By: No Limitations General Appearance: Alert, WD/WN, No Apparent Distress Head: Atraumatic, Normocephalic Neck: Normal Inspection, Supple, Non-Tender, Full Range of Motion Respiratory/Chest: No Accessory Muscle Use, Crackles (LLL) Cardiovascular: Normal Peripheral Pulses, No Edema, Irregularly Irregular GI/Abdominal: Normal Bowel Sounds, Soft, No Distention, Tender. No: Distended, Guarding, Rigid, Rebound Back Exam: Decreased Range of Motion, Other (kyphosis). No: CVA Tenderness (L) , CVA Tenderness (R) Extremities: Normal Inspection, Normal Range of Motion, Non-Tender, Normal Capillary Refill, No Pedal Edema Neurological: Alert, Oriented, CN II-XII Intact, Normal Cognition, No Motor/ Sensory Deficits Psychiatric: Normal Affect, Normal Mood Skin Exam: Warm, Dry, Intact, Normal Color, No Rash Lymphatic: No Adenopathy Course - Orders/Labs/Meds Orders: Active Orders 24 hr Category Date Time Status Chest 2V [CR] Stat Exams 12/17/17 21:45 Ordered Chest 2V [CR] Stat Exams 12/17/17 21:45 Stop Req C DIFFICILE BY DNA [RM] Stat Lab 12/17/17 21:35 Ordered STOOL CULTURE [MREF] Stat Lab 12/17/17 21:35 Ordered UA W/MICROSCOPIC [URIN] Stat Lab 12/17/17 20:51 Ordered Labs: Laboratory Tests 12/17/17 12/17/17 12/17/17 Range/Units 21:02 21:05 21:05 WBC 11.9 H (5.0-10.0) 10^3/uL RBC 3.73 L (4.00-5.50) 10^6/uL Hgb 11.4 L (12.0-16.0) g/dL Hct 35.7 L (37.0-47.0) % MCV 95.7 H (82.0-94.0) fL MCH 30.6 (27.0-32.0) pg MCHC 31.9 L (33.0-38.0) g/dL RDW Coeff of Marcelo 18.7 H (11.0-15.0) % Plt Count 410 H (150-400) 10^3/uL Neut % (Auto) 88.9 H (35-85) % Lymph % (Auto) 6.3 L (10-55) % [place] % (Auto) 4.4 (0-16) % Eos % (Auto) 0.3 (0-5) % Baso % (Auto) 0.1 (0-3) % Neut # (Auto) 10.60 H (1.80-7.00) 10^3/uL Lymph # (Auto) 0.75 L (1.00-4.80) 10^3/uL [place] # (Auto) 0.52 (0.00-0.80) 10^3/uL Eos # (Auto) 0.04 (0.00-0.45) 10^3/uL Baso # (Auto) 0.01 10^3/uL PT (9.7-12.3) SEC INR (0.92-1.18) D-Dimer, Quantitative 1.09 H (0.00-0.50) Sodium 141 (136-145) mEq/L Potassium 3.7 (3.5-5.0) mEq/L Chloride 102 (98-106) mEq/L Carbon Dioxide 30 (21-32) mmol/L BUN 20 H (7-18) mg/dL Creatinine 1.0 (0.6-1.0) mg/dL Est Cr Clr Drug Dosing TNP Estimated GFR (MDRD) 52 L (>=60) mL/min Glucose 133 H D (75-99) mg/dL Calcium 8.7 (8.4-10.1) mg/dL Total Bilirubin 0.5 (0.0-1.0) mg/dL AST 25 (15-37) U/L ALT 40 (12-78) U/L Alkaline Phosphatase 95 (46-116) U/L Troponin I 0.036 (0.00-0.06) ng/mL C-Reactive Protein 9.8 H (0.2-0.8) mg/dL NT-Pro-B Natriuret Pep 4646 H (0-1000) pg/mL Total Protein 6.7 (6.4-8.2) g/dL Albumin 2.1 L (3.4-5.0) g/dL 12/17/17 Range/Units 21:05 WBC (5.0-10.0) 10^3/uL RBC (4.00-5.50) 10^6/uL Hgb (12.0-16.0) g/dL Hct (37.0-47.0) % MCV (82.0-94.0) fL MCH (27.0-32.0) pg MCHC (33.0-38.0) g/dL RDW Coeff of Marcelo (11.0-15.0) % Plt Count (150-400) 10^3/uL Neut % (Auto) (35-85) % Lymph % (Auto) (10-55) % [place] % (Auto) (0-16) % Eos % (Auto) (0-5) % Baso % (Auto) (0-3) % Neut # (Auto) (1.80-7.00) 10^3/uL Lymph # (Auto) (1.00-4.80) 10^3/uL [place] # (Auto) (0.00-0.80) 10^3/uL Eos # (Auto) (0.00-0.45) 10^3/uL Baso # (Auto) 10^3/uL PT 16.7 H (9.7-12.3) SEC INR 1.67 H (0.92-1.18) D-Dimer, Quantitative (0.00-0.50) Sodium (136-145) mEq/L Potassium (3.5-5.0) mEq/L Chloride (98-106) mEq/L Carbon Dioxide (21-32) mmol/L BUN (7-18) mg/dL Creatinine (0.6-1.0) mg/dL Est Cr Clr Drug Dosing Estimated GFR (MDRD) (>=60) mL/min Glucose (75-99) mg/dL Calcium (8.4-10.1) mg/dL Total Bilirubin (0.0-1.0) mg/dL AST (15-37) U/L ALT (12-78) U/L Alkaline Phosphatase (46-116) U/L Troponin I (0.00-0.06) ng/mL C-Reactive Protein (0.2-0.8) mg/dL NT-Pro-B Natriuret Pep (0-1000) pg/mL Total Protein (6.4-8.2) g/dL Albumin (3.4-5.0) g/dL - Re-Assessments/Exams Free Text/Narrative Re-Assessment/Exam: 12/17/17 21:48 Discussed labs and CXR with patient and daughter. WBC and CRP elevated. D-Dimer elevated, currently being treated for recent PE. I suspect patient aspirated. Patient O2 sat maintining on 2 L O2. Discussed admission to hospital. Patient and daughter agreeable to plan. Departure - Departure Time of Disposition: 21:49 Disposition: Admitted As Inpatient 66 Condition: Fair Clinical Impression: Aspiration pneumonia, Dehydration, mild, PE, Pulmonary embolism, Diarrhea, CHF , Congestive heart failure - Discharge Information Forms: ED Department Discharge - Problem List & Annotations (1) Aspiration pneumonia SNOMED Code(s): 346739361 Code(s): J69.0 - PNEUMONITIS DUE TO INHALATION OF FOOD AND VOMIT Status: Acute (2) Diarrhea SNOMED Code(s): 29058398 Code(s): R19.7 - DIARRHEA, UNSPECIFIED Status: Acute Qualifiers: Diarrhea type: presumed infectious Qualified Code(s): R19.7 - Diarrhea, unspecified (3) Dehydration, mild SNOMED Code(s): 1148477872961 Code(s): E86.0 - DEHYDRATION Status: Acute (4) PE, Pulmonary embolism SNOMED Code(s): 49067898 Code(s): I26.99 - OTHER PULMONARY EMBOLISM WITHOUT ACUTE COR PULMONALE Status: Acute (5) CHF, Congestive heart failure SNOMED Code(s): 79429353 Code(s): I50.9 - HEART FAILURE, UNSPECIFIED Status: Chronic - Problem List Review Problem List Initiated/Reviewed/Updated: Yes - My Orders Last 24 Hours: My Active Orders 12/17/17 20:51 UA W/MICROSCOPIC [URIN] Stat 12/17/17 21:35 C DIFFICILE BY DNA [RM] Stat STOOL CULTURE [MREF] Stat 12/17/17 21:45 Chest 2V [CR] Stat Chest 2V [CR] Stat - Assessment/Plan Admission H&P: Please use this note as an admission H&P Last 24 Hours: My Active Orders 12/17/17 20:51 UA W/MICROSCOPIC [URIN] Stat 12/17/17 21:35 C DIFFICILE BY DNA [RM] Stat STOOL CULTURE [MREF] Stat 12/17/17 21:45 Chest 2V [CR] Stat Chest 2V [CR] Stat Assessment:: Aspiration Pneumonia Congestive Heart Failure Pulmonary Emboli Dehydration Diarrhea Plan: Admit acute with telemetry to Dr. Crews IV rocephin and azithromycin Gentle IV hydration Continue home dosing of Coumadin Continue home meds Dr. Crews to see in am
[2017-12-17 21:30] LABS: CHLORIDE,CL 102 mEq/L (98-106); SODIUM,NA 141 mEq/L (136-145)
[2017-12-17] MEDS ORDERED: Ondansetron 4 MG/2 ML SDV IV PRN (22:10)
[2017-12-17] MEDS ORDERED: Magnesium Hydroxide 400 MG/5 ML Susp 30 ML Cup PO PRN (22:10)
[2017-12-17] MEDS ORDERED: Furosemide 20 MG/2 ML VIAL IVPUSH ONE (22:10)
[2017-12-17] MEDS ORDERED: Acetaminophen 325 MG Tab PO PRN (22:10)
[2017-12-17] MEDS ORDERED: cefTRIAXone 1 GM Vial IVPUSH SCH (22:15)
[2017-12-17] MEDS ORDERED: Non-Formulary Medication 1 Each (Warfarin 0.5 MG) PO SCH (22:15)
[2017-12-17] MEDS ORDERED: Azithromycin 500 MG in Sodium Chloride 0.9% 250 ML IV SCH (22:15)
[2017-12-17] MEDS ORDERED: Sodium Chloride 0.9% 1,000 ML IV SCH (22:15)
[2017-12-17] MEDS ORDERED: Nitroglycerin 0.4 MG Tab.SL SL SCH (22:15)
[2017-12-18] MEDS: Sertraline 100 MG Tab PO SCH (07:49)
[2017-12-18] MEDS: Metoprolol Tartrate 50 MG Tab PO SCH ×2 (07:49→19:31)
[2017-12-18] MEDS: atorvaSTATin 10 MG Tab PO SCH (07:50)
[2017-12-18] MEDS: Pantoprazole 40 MG Tab.CR PO SCH (07:50)
[2017-12-18] MEDS: Albuterol/Ipratropium 3.0-0.5 MG/3 ML Neb Soln NEB SCH ×4 (07:51→19:30)
[2017-12-18] MEDS: CRANBERRY FRUIT PO SCH (07:51)
[2017-12-18] MEDS ORDERED: Non-Formulary Medication 1 Each (Warfarin 1 MG) PO SCH (08:00)
[2017-12-18] MEDS: Clindamycin Phosphate in D5W 300 MG in Premix Bag 1 BAG IV SCH ×10 (09:00→19:35)
--- NOTE | 2017-12-18 11:48 | PCM.PN ---
- General Info Date of Service: 12/18/17 Admission Dx/Problem (Free Text): Aspiration Pneumonia Functional Status: Reports: Pain Controlled, Tolerating Diet, Ambulating - Review of Systems General: Reports: Weakness, Fatigue. Denies: Fever HEENT: Denies: Sore Throat, Rhinitis Pulmonary: Reports: Cough. Denies: Shortness of Breath Cardiovascular: Denies: Chest Pain, Edema, Lightheadedness Gastrointestinal: Denies: Abdominal Pain, Nausea, Vomiting Genitourinary: Reports: No Symptoms Skin: Reports: No Symptoms Neurological: Reports: Weakness - Patient Data Vitals - Most Recent: Last Vital Signs Temp 97.0 F 12/18/17 07:35 Pulse 86 12/18/17 07:49 Resp 16 12/18/17 07:35 BP 131/48 L 12/18/17 07:49 Pulse Ox 94 L 12/18/17 07:35 Weight - Most Recent: 107 lb I&O - Last 24 Hours: Intake & Output 12/17/17 12/18/17 12/18/17 22:59 06:59 14:59 Intake Total 100 Output Total 100 Balance 0 Lab Results Last 24 Hours: Laboratory Results - last 24 hr 12/17/17 12/17/17 12/17/17 Range/Units 20:51 21:02 21:05 WBC 11.9 H (5.0-10.0) 10^3/uL RBC 3.73 L (4.00-5.50) 10^6/uL Hgb 11.4 L (12.0-16.0) g/dL Hct 35.7 L (37.0-47.0) % MCV 95.7 H (82.0-94.0) fL MCH 30.6 (27.0-32.0) pg MCHC 31.9 L (33.0-38.0) g/dL RDW Coeff of Marcelo 18.7 H (11.0-15.0) % Plt Count 410 H (150-400) 10^3/uL Neut % (Auto) 88.9 H (35-85) % Lymph % (Auto) 6.3 L (10-55) % [place] % (Auto) 4.4 (0-16) % Eos % (Auto) 0.3 (0-5) % Baso % (Auto) 0.1 (0-3) % Neut # (Auto) 10.60 H (1.80-7.00) 10^3/uL Lymph # (Auto) 0.75 L (1.00-4.80) 10^3/uL [place] # (Auto) 0.52 (0.00-0.80) 10^3/uL Eos # (Auto) 0.04 (0.00-0.45) 10^3/uL Baso # (Auto) 0.01 10^3/uL PT (9.7-12.3) SEC INR (0.92-1.18) D-Dimer, Quantitative 1.09 H (0.00-0.50) Sodium (136-145) mEq/L Potassium (3.5-5.0) mEq/L Chloride (98-106) mEq/L Carbon Dioxide (21-32) mmol/L BUN (7-18) mg/dL Creatinine (0.6-1.0) mg/dL Est Cr Clr Drug Dosing Estimated GFR (MDRD) (>=60) mL/min Glucose (75-99) mg/dL Calcium (8.4-10.1) mg/dL Total Bilirubin (0.0-1.0) mg/dL AST (15-37) U/L ALT (12-78) U/L Alkaline Phosphatase (46-116) U/L Troponin I (0.00-0.06) ng/mL C-Reactive Protein (0.2-0.8) mg/dL NT-Pro-B Natriuret Pep (0-1000) pg/mL Total Protein (6.4-8.2) g/dL Albumin (3.4-5.0) g/dL Urine Color Yellow (YELLOW) Urine Appearance Slightly cloudy (CLEAR) Urine pH 7.5 (4.5-8.0) Ur Specific [place] 1.020 (1.003-1.020) Urine Protein 30 H (NEGATIVE) mg/dL Urine Glucose (UA) Negative (NEGATIVE) mg/dL Urine Ketones Negative (NEGATIVE) mg/dL Urine Occult Blood Large H (NEGATIVE) Urine Nitrite Negative (NEGATIVE) Urine Bilirubin Negative (NEGATIVE) Urine Urobilinogen 1.0 (0.2-1.0) EU/dL Ur Leukocyte Esterase Negative (NEGATIVE) Urine RBC >100 H (0-5) /HPF Urine WBC 10-20 H (0-5) /HPF Ur Epithelial Cells Few H (NOT SEEN) /HPF Calcium Oxalate Crystal Moderate H (NOT SEEN) /HPF 12/17/17 12/17/17 12/18/17 Range/Units 21:05 21:05 06:55 WBC 7.0 (5.0-10.0) 10^3/uL RBC 3.28 L (4.00-5.50) 10^6/uL Hgb 10.1 L (12.0-16.0) g/dL Hct 31.7 L (37.0-47.0) % MCV 96.6 H (82.0-94.0) fL MCH 30.8 (27.0-32.0) pg MCHC 31.9 L (33.0-38.0) g/dL RDW Coeff of Marcelo 18.5 H (11.0-15.0) % Plt Count 340 (150-400) 10^3/uL Neut % (Auto) 81.2 (35-85) % Lymph % (Auto) 11.3 (10-55) % Smith % (Auto) 6.8 (0-16) % Eos % (Auto) 0.6 (0-5) % Baso % (Auto) 0.1 (0-3) % Neut # (Auto) 5.69 (1.80-7.00) 10^3/uL Lymph # (Auto) 0.79 L (1.00-4.80) 10^3/uL [place] # (Auto) 0.48 (0.00-0.80) 10^3/uL Eos # (Auto) 0.04 (0.00-0.45) 10^3/uL Baso # (Auto) 0.01 10^3/uL PT 16.7 H (9.7-12.3) SEC INR 1.67 H (0.92-1.18) D-Dimer, Quantitative (0.00-0.50) Sodium 141 (136-145) mEq/L Potassium 3.7 (3.5-5.0) mEq/L Chloride 102 (98-106) mEq/L Carbon Dioxide 30 (21-32) mmol/L BUN 20 H (7-18) mg/dL Creatinine 1.0 (0.6-1.0) mg/dL Est Cr Clr Drug Dosing TNP Estimated GFR (MDRD) 52 L (>=60) mL/min Glucose 133 H D (75-99) mg/dL Calcium 8.7 (8.4-10.1) mg/dL Total Bilirubin 0.5 (0.0-1.0) mg/dL AST 25 (15-37) U/L ALT 40 (12-78) U/L Alkaline Phosphatase 95 (46-116) U/L Troponin I 0.036 (0.00-0.06) ng/mL C-Reactive Protein 9.8 H (0.2-0.8) mg/dL NT-Pro-B Natriuret Pep 4646 H (0-1000) pg/mL Total Protein 6.7 (6.4-8.2) g/dL Albumin 2.1 L (3.4-5.0) g/dL Urine Color (YELLOW) Urine Appearance (CLEAR) Urine pH (4.5-8.0) Ur Specific [place] (1.003-1.020) Urine Protein (NEGATIVE) mg/dL Urine Glucose (UA) (NEGATIVE) mg/dL Urine Ketones (NEGATIVE) mg/dL Urine Occult Blood (NEGATIVE) Urine Nitrite (NEGATIVE) Urine Bilirubin (NEGATIVE) Urine Urobilinogen (0.2-1.0) EU/dL Ur Leukocyte Esterase (NEGATIVE) Urine RBC (0-5) /HPF Urine WBC (0-5) /HPF Ur Epithelial Cells (NOT SEEN) /HPF Calcium Oxalate Crystal (NOT SEEN) /HPF 12/18/17 Range/Units 06:55 WBC (5.0-10.0) 10^3/uL RBC (4.00-5.50) 10^6/uL Hgb (12.0-16.0) g/dL Hct (37.0-47.0) % MCV (82.0-94.0) fL MCH (27.0-32.0) pg MCHC (33.0-38.0) g/dL RDW Coeff of Marcelo (11.0-15.0) % Plt Count (150-400) 10^3/uL Neut % (Auto) (35-85) % Lymph % (Auto) (10-55) % [place] % (Auto) (0-16) % Eos % (Auto) (0-5) % Baso % (Auto) (0-3) % Neut # (Auto) (1.80-7.00) 10^3/uL Lymph # (Auto) (1.00-4.80) 10^3/uL [place] # (Auto) (0.00-0.80) 10^3/uL Eos # (Auto) (0.00-0.45) 10^3/uL Baso # (Auto) 10^3/uL PT (9.7-12.3) SEC INR (0.92-1.18) D-Dimer, Quantitative (0.00-0.50) Sodium 142 (136-145) mEq/L Potassium 3.5 (3.5-5.0) mEq/L Chloride 105 (98-106) mEq/L Carbon Dioxide 31 (21-32) mmol/L BUN 19 H (7-18) mg/dL Creatinine 1.0 (0.6-1.0) mg/dL Est Cr Clr Drug Dosing 29.22 Estimated GFR (MDRD) 52 L (>=60) mL/min Glucose 90 D (75-99) mg/dL Calcium 7.8 L (8.4-10.1) mg/dL Total Bilirubin (0.0-1.0) mg/dL AST (15-37) U/L ALT (12-78) U/L Alkaline Phosphatase (46-116) U/L Troponin I (0.00-0.06) ng/mL C-Reactive Protein 11.7 H (0.2-0.8) mg/dL NT-Pro-B Natriuret Pep (0-1000) pg/mL Total Protein (6.4-8.2) g/dL Albumin (3.4-5.0) g/dL Urine Color (YELLOW) Urine Appearance (CLEAR) Urine pH (4.5-8.0) Ur Specific [place] (1.003-1.020) Urine Protein (NEGATIVE) mg/dL Urine Glucose (UA) (NEGATIVE) mg/dL Urine Ketones (NEGATIVE) mg/dL Urine Occult Blood (NEGATIVE) Urine Nitrite (NEGATIVE) Urine Bilirubin (NEGATIVE) Urine Urobilinogen (0.2-1.0) EU/dL Ur Leukocyte Esterase (NEGATIVE) Urine RBC (0-5) /HPF Urine WBC (0-5) /HPF Ur Epithelial Cells (NOT SEEN) /HPF Calcium Oxalate Crystal (NOT SEEN) /HPF Nas Results Last 24 Hours: Microbiology 12/18/17 10:22 C. difficile DNA Amplification - Final Stool / Feces NEGATIVE CDIFF BY DNA Med Orders - Current: Current Medications Acetaminophen (Tylenol) 650 mg PO Q4H PRN PRN Reason: Pain (Mild 1-3)/fever Last Admin: 12/17/17 23:39 Dose: 650 mg Albuterol/Ipratropium (Duoneb 3.0-0.5 Mg/3 Ml) 3 ml NEB QID [facility] Last Admin: 12/18/17 11:33 Dose: 3 ml Atorvastatin Calcium (Lipitor) 5 mg PO DAILY [facility] Last Admin: 12/18/17 07:50 Dose: 5 mg Sodium Chloride (Normal Saline) 1,000 mls @ 50 mls/hr IV ASDIRECTED [facility] Clindamycin Phosphate 300 mg/ (Premix) 50 mls @ 100 mls/hr IV 0200,0800,1400, 2000 [facility] Last Admin: 12/18/17 09:00 Dose: 100 mls/hr Magnesium Hydroxide (Milk Of Magnesia) 30 ml PO Q12H PRN PRN Reason: Constipation Metoprolol Tartrate (Lopressor) 50 mg PO BID [facility] Last Admin: 12/18/17 07:49 Dose: 50 mg Mirtazapine (Remeron) 15 mg PO BEDTIME [facility] Nitroglycerin (Nitrostat) 0.4 mg SL ASDIRECTED [facility] Non-Formulary Medication (Cranberry Fruit [Cranberry]) 2 tab PO DAILY [facility] Last Admin: 12/18/17 07:51 Dose: Not Given Non-Formulary Medication (Warfarin) 1 mg PO MOTH [facility] Non-Formulary Medication (Warfarin) 0.5 mg PO SUWEFRSA [facility] Ondansetron HCl (Zofran) 4 mg IV Q6H PRN PRN Reason: Nausea/Vomiting Pantoprazole Sodium (Protonix) 40 mg PO DAILY [facility] Last Admin: 12/18/17 07:50 Dose: 40 mg Sertraline HCl (Zoloft) 50 mg PO DAILY [facility] Last Admin: 12/18/17 07:49 Dose: 50 mg Discontinued Medications Ceftriaxone Sodium (Rocephin) 1 gm IVPUSH Q24H [facility] Last Admin: 12/17/17 23:40 Dose: 1 gm Ceftriaxone Sodium (Rocephin) 1 gm IVPUSH DAILY@1999 [facility] Furosemide (Lasix) 20 mg IVPUSH ONETIME ONE Stop: 12/17/17 22:11 Last Admin: 12/17/17 23:38 Dose: 20 mg Azithromycin 500 mg/ Sodium (Chloride) 250 mls @ 250 mls/hr IV Q24H [facility] Last Admin: 12/17/17 23:45 Dose: 250 mls/hr Azithromycin 500 mg/ Sodium (Chloride) 250 mls @ 250 mls/hr IV DAILY@1999 [facility] Clindamycin Phosphate 300 mg/ (Premix) 50 mls @ 100 mls/hr IV Q6H [facility] Last Admin: 12/18/17 09:20 Dose: 100 mls/hr Clindamycin Phosphate 300 mg/ (Premix) 50 mls @ 100 mls/hr IV Q6H [facility] Non-Formulary Medication (Warfarin) 0.5 mg PO ASDIRECTED [facility] Non-Formulary Medication (Warfarin) 1 mg PO DAILY [facility] Non-Formulary Medication (Warfarin) 0.5 mg PO SUWEFRSA [facility] - Exam General: Alert, Oriented HEENT: Mucous Membr. Moist/[place] Neck: Supple Lungs: Normal Respiratory Effort, Decreased Breath Sounds Cardiovascular: Regular Rate, Regular Rhythm GI/Abdominal Exam: Normal Bowel Sounds, Soft, Non-Tender Extremities: Normal Inspection, No Pedal Edema Skin: Warm, Dry Neurological: No New Focal Deficit - Problem List & Annotations (1) Aspiration pneumonia SNOMED Code(s): 183706041 Code(s): J69.0 - PNEUMONITIS DUE TO INHALATION OF FOOD AND VOMIT Status: Acute Priority: High Current Visit: Yes - Problem List Review Problem List Initiated/Reviewed/Updated: Yes - My Orders Last 24 Hours: My Active Orders 12/19/17 05:11 BASIC METABOLIC PANEL,BMP [CHEM] AM C-REACTIVE PROTEIN [CHEM] AM CBC WITH AUTO DIFF [HEME] AM - Assessment Assessment:: Aspiration Pneumonia - Plan Plan:: Patient sitting up in bed, states feeling weak but denies shortness of breath. Patient had an episode of SOB while eating last night and daughter was worried that she had choked and aspirated. Apparently was having abdominal pain at that time. She had been very ill a month ago with CHF, was transferred to [place]. Was hospitalized there for a week and spent 3 weeks at [place] for rehab. Has been home a week and doing well. Daughter also relates that she has had diarrhea since coming home. Labs from admit noted. WBC normal. CRP 11.7, ProBNP 4646. Will switch patient to Cleocin and stop Rocephin and Zithromax. Repeat labs in am. Awaiting stool collection as has not had any diarrhea stools since admission.
[2017-12-18] MEDS ORDERED: Clindamycin Phosphate in D5W 300 MG in Premix Bag 1 BAG IV SCH ×2 (12:00)
[2017-12-18] MEDS ORDERED: Diltiazem 120 MG Cap.CD PO SCH ×2 (18:15→20:00)
[2017-12-18] MEDS: Mirtazapine 15 MG Tab PO SCH (19:30)
[2017-12-18] MEDS ORDERED: cefTRIAXone 1 GM Vial IVPUSH SCH (20:00)
[2017-12-18] MEDS ORDERED: Azithromycin 500 MG in Sodium Chloride 0.9% 250 ML IV SCH (20:00)
[2017-12-19] MEDS: Clindamycin Phosphate in D5W 300 MG in Premix Bag 1 BAG IV SCH ×8 (01:52→19:15)
[2017-12-19] MEDS: Pantoprazole 40 MG Tab.CR PO SCH (07:12)
[2017-12-19] MEDS: atorvaSTATin 10 MG Tab PO SCH (07:12)
[2017-12-19] MEDS: Metoprolol Tartrate 50 MG Tab PO SCH ×2 (07:13→19:20)
[2017-12-19] MEDS: Sertraline 100 MG Tab PO SCH (07:13)
[2017-12-19] MEDS: Albuterol/Ipratropium 3.0-0.5 MG/3 ML Neb Soln NEB SCH ×4 (07:13→19:16)
[2017-12-19] MEDS: CRANBERRY FRUIT PO SCH (07:14)
[2017-12-19] MEDS ORDERED: Diltiazem 120 MG Cap.CD PO SCH (09:00)
[2017-12-19] MEDS ORDERED: Diltiazem 120 MG Cap.CD PO ONE (09:34)
--- NOTE | 2017-12-19 11:34 | PCM.PN ---
- General Info Date of Service: 12/19/17 Admission Dx/Problem (Free Text): Aspiration Pneumonia Functional Status: Reports: Pain Controlled, Tolerating Diet, Ambulating - Review of Systems General: Reports: Weakness, Fatigue. Denies: Fever HEENT: Reports: No Symptoms Pulmonary: Reports: Cough. Denies: Shortness of Breath, Wheezing Cardiovascular: Denies: Chest Pain, Edema, Lightheadedness Gastrointestinal: Denies: Abdominal Pain, Nausea, Vomiting Genitourinary: Reports: No Symptoms Skin: Reports: No Symptoms Neurological: Reports: Weakness - Patient Data Vitals - Most Recent: Last Vital Signs Temp 97.5 F 12/19/17 07:15 Pulse 92 12/19/17 09:45 Resp 18 12/19/17 07:15 BP 133/78 12/19/17 09:45 Pulse Ox 94 L 12/19/17 07:15 Weight - Most Recent: 112 lb I&O - Last 24 Hours: Intake & Output 12/18/17 12/19/17 12/19/17 22:59 06:59 14:59 Intake Total 658 270 Balance 658 270 Lab Results Last 24 Hours: Laboratory Results - last 24 hr 12/19/17 12/19/17 Range/Units 07:00 07:00 WBC 5.9 (5.0-10.0) 10^3/uL RBC 3.01 L (4.00-5.50) 10^6/uL Hgb 9.2 L (12.0-16.0) g/dL Hct 29.1 L (37.0-47.0) % MCV 96.7 H (82.0-94.0) fL MCH 30.6 (27.0-32.0) pg MCHC 31.6 L (33.0-38.0) g/dL RDW Coeff of Marcelo 18.6 H (11.0-15.0) % Plt Count 309 (150-400) 10^3/uL Neut % (Auto) 75.9 (35-85) % Lymph % (Auto) 14.6 (10-55) % [place] % (Auto) 8.3 (0-16) % Eos % (Auto) 1.0 (0-5) % Baso % (Auto) 0.2 (0-3) % Neut # (Auto) 4.46 (1.80-7.00) 10^3/uL Lymph # (Auto) 0.86 L (1.00-4.80) 10^3/uL [place] # (Auto) 0.49 (0.00-0.80) 10^3/uL Eos # (Auto) 0.06 (0.00-0.45) 10^3/uL Baso # (Auto) 0.01 10^3/uL Sodium 139 (136-145) mEq/L Potassium 3.7 (3.5-5.0) mEq/L Chloride 105 (98-106) mEq/L Carbon Dioxide 28 (21-32) mmol/L BUN 15 (7-18) mg/dL Creatinine 0.9 (0.6-1.0) mg/dL Est Cr Clr Drug Dosing 33.52 mL/min Estimated GFR (MDRD) 59 L (>=60) mL/min Glucose 93 (75-99) mg/dL Calcium 7.7 L (8.4-10.1) mg/dL C-Reactive Protein 11.9 H (0.2-0.8) mg/dL Nas Results Last 24 Hours: Microbiology 12/18/17 10:22 C. difficile DNA Amplification - Final Stool / Feces NEGATIVE CDIFF BY DNA Med Orders - Current: Current Medications Acetaminophen (Tylenol) 650 mg PO Q4H PRN PRN Reason: Pain (Mild 1-3)/fever Last Admin: 12/17/17 23:39 Dose: 650 mg Albuterol/Ipratropium (Duoneb 3.0-0.5 Mg/3 Ml) 3 ml NEB QID [facility] Last Admin: 12/19/17 07:13 Dose: 3 ml Atorvastatin Calcium (Lipitor) 5 mg PO DAILY [facility] Last Admin: 12/19/17 07:12 Dose: 5 mg Diltiazem HCl (Cardizem Cd) 240 mg PO DAILY [facility] Clindamycin Phosphate 300 mg/ (Premix) 50 mls @ 100 mls/hr IV 0200,0800,1400, 2000 [facility] Last Admin: 12/19/17 07:14 Dose: 100 mls/hr Magnesium Hydroxide (Milk Of Magnesia) 30 ml PO Q12H PRN PRN Reason: Constipation Metoprolol Tartrate (Lopressor) 50 mg PO BID [facility] Last Admin: 12/19/17 07:13 Dose: 50 mg Mirtazapine (Remeron) 15 mg PO BEDTIME [facility] Last Admin: 12/18/17 19:30 Dose: 15 mg Nitroglycerin (Nitrostat) 0.4 mg SL ASDIRECTED [facility] Non-Formulary Medication (Cranberry Fruit [Cranberry]) 2 tab PO DAILY [facility] Last Admin: 12/19/17 07:14 Dose: Not Given Non-Formulary Medication (Warfarin) 1 mg PO MOTH [facility] Non-Formulary Medication (Warfarin) 0.5 mg PO SUWEFRSA [facility] Ondansetron HCl (Zofran) 4 mg IV Q6H PRN PRN Reason: Nausea/Vomiting Pantoprazole Sodium (Protonix) 40 mg PO DAILY [facility] Last Admin: 12/19/17 07:12 Dose: 40 mg Sertraline HCl (Zoloft) 50 mg PO DAILY [facility] Last Admin: 12/19/17 07:13 Dose: 50 mg Discontinued Medications Ceftriaxone Sodium (Rocephin) 1 gm IVPUSH Q24H [facility] Last Admin: 12/17/17 23:40 Dose: 1 gm Ceftriaxone Sodium (Rocephin) 1 gm IVPUSH DAILY@1999 [facility] Diltiazem HCl (Cardizem Cd) 120 mg PO DAILY [facility] Diltiazem HCl (Cardizem Cd) 120 mg PO DAILY@1999 [facility] Last Admin: 12/18/17 19:30 Dose: 120 mg Diltiazem HCl (Cardizem Cd) 240 mg PO DAILY@1999 [facility] Last Admin: 12/19/17 10:50 Dose: Not Given Diltiazem HCl (Cardizem Cd) 240 mg PO ONETIME ONE Stop: 12/19/17 09:35 Last Admin: 12/19/17 09:45 Dose: 240 mg Furosemide (Lasix) 20 mg IVPUSH ONETIME ONE Stop: 12/17/17 22:11 Last Admin: 12/17/17 23:38 Dose: 20 mg Azithromycin 500 mg/ Sodium (Chloride) 250 mls @ 250 mls/hr IV Q24H [facility] Last Admin: 12/17/17 23:45 Dose: 250 mls/hr Sodium Chloride (Normal Saline) 1,000 mls @ 50 mls/hr IV ASDIRECTED [facility] Azithromycin 500 mg/ Sodium (Chloride) 250 mls @ 250 mls/hr IV DAILY@1999 [facility] Clindamycin Phosphate 300 mg/ (Premix) 50 mls @ 100 mls/hr IV Q6H [facility] Last Admin: 12/18/17 12:51 Dose: Not Given Clindamycin Phosphate 300 mg/ (Premix) 50 mls @ 100 mls/hr IV Q6H [facility] Non-Formulary Medication (Warfarin) 0.5 mg PO ASDIRECTED [facility] Non-Formulary Medication (Warfarin) 1 mg PO DAILY [facility] Non-Formulary Medication (Warfarin) 0.5 mg PO SUWEFRSA [facility] - Exam General: Alert, Oriented HEENT: Mucous Membr. Moist/[place] Neck: Supple Lungs: Crackles (LLL) Cardiovascular: Regular Rate, Regular Rhythm GI/Abdominal Exam: Normal Bowel Sounds, Soft, Non-Tender Extremities: Normal Inspection, No Pedal Edema Skin: Warm, Dry Neurological: No New Focal Deficit - Problem List & Annotations (1) Aspiration pneumonia SNOMED Code(s): 185118813 Code(s): J69.0 - PNEUMONITIS DUE TO INHALATION OF FOOD AND VOMIT Status: Acute Priority: High Current Visit: Yes Qualifiers: Laterality: left Lung location: lower lobe of lung - Problem List Review Problem List Initiated/Reviewed/Updated: Yes - My Orders Last 24 Hours: My Active Orders 12/19/17 11:21 OCCULT BLOOD SCREEN [OP] Routine - Assessment Assessment:: Aspiration Pneumonia - Plan Plan:: Patient sitting up in bed, states feeling weak but denies shortness of breath. Patient had an episode of SOB while eating last night and daughter was worried that she had choked and aspirated. Apparently was having abdominal pain at that time. She had been very ill a month ago with CHF, was transferred to [place]. Was hospitalized there for a week and spent 3 weeks at [place] for rehab. Has been home a week and doing well. Daughter also relates that she has had diarrhea since coming home. Labs from admit noted. WBC normal. CRP 11.7, ProBNP 4646. Will switch patient to Cleocin and stop Rocephin and Zithromax. Repeat labs in am. Awaiting stool collection as has not had any diarrhea stools since admission. 12-19-2017 Patient doing well this am, just states "is tired". Denies shortness of breath. Has infrequent cough. Oxygen sats are stable. Lung sounds note rhonchi/crackles in the LLL. Tolerating meals. Labs noted. Hemoglobin down to 9.2, CRP stable at 11.9, WBC normal. Patient converted to atrial fib last night, is on Coumadin. Cardizem was started due to heart rate of 130s. Heart rate now at this time, 103. Denies any chest pain or palpitations during that time or now. Will continue with Cardizem and increase to 240 mg as is already on 50 mg BID metoprolol. Will continue with Cleocin. Obtain occult stools x3. Possible discharge home in next 24-48 hours.
[2017-12-19] MEDS ORDERED: Non-Formulary Medication 1 Each (Warfarin 0.5 MG) PO SCH ×2 (12:00→22:12)
[2017-12-19] MEDS: Mirtazapine 15 MG Tab PO SCH (19:16)
[2017-12-19] MEDS: Pantoprazole 40 MG Vial IVPUSH SCH (21:35)
[2017-12-20] MEDS: Clindamycin Phosphate in D5W 300 MG in Premix Bag 1 BAG IV SCH ×8 (02:49→19:45)
[2017-12-20] MEDS: atorvaSTATin 10 MG Tab PO SCH (07:52)
[2017-12-20] MEDS: Sertraline 100 MG Tab PO SCH (07:53)
[2017-12-20] MEDS: Metoprolol Tartrate 50 MG Tab PO SCH ×2 (07:53→19:48)
[2017-12-20] MEDS: Albuterol/Ipratropium 3.0-0.5 MG/3 ML Neb Soln NEB SCH ×4 (07:54→19:51)
[2017-12-20] MEDS: Diltiazem 120 MG Cap.CD PO SCH (07:54)
[2017-12-20] MEDS: CRANBERRY FRUIT PO SCH (08:11)
--- NOTE | 2017-12-20 15:33 | PCM.PN ---
- General Info Date of Service: 12/20/17 Admission Dx/Problem (Free Text): Aspiration Pneumonia Functional Status: Reports: Pain Controlled, Tolerating Diet. Denies: Ambulating - Review of Systems General: Reports: Weakness, Fatigue. Denies: Fever HEENT: Reports: Rhinitis Pulmonary: Reports: Cough. Denies: Shortness of Breath, Sputum Cardiovascular: Denies: Chest Pain, Edema, Lightheadedness Gastrointestinal: Denies: Abdominal Pain, Constipation, Diarrhea, Nausea, Vomiting Genitourinary: Reports: No Symptoms Musculoskeletal: Reports: No Symptoms Skin: Reports: No Symptoms Neurological: Reports: Weakness - Patient Data Vitals - Most Recent: Last Vital Signs Temp 97 F 12/20/17 12:00 Pulse 70 12/20/17 12:00 Resp 20 12/20/17 12:00 BP 114/53 L 12/20/17 12:00 Pulse Ox 93 L 12/20/17 12:00 Weight - Most Recent: 113 lb 9.6 oz I&O - Last 24 Hours: Intake & Output 12/20/17 12/20/17 12/20/17 06:59 14:59 22:59 Intake Total 850 50 Output Total 400 Balance 450 50 Lab Results Last 24 Hours: Laboratory Results - last 24 hr 12/20/17 12/20/17 12/20/17 Range/Units 07:10 07:10 07:10 WBC 6.8 (5.0-10.0) 10^3/uL RBC 3.10 L (4.00-5.50) 10^6/uL Hgb 9.6 L (12.0-16.0) g/dL Hct 30.0 L (37.0-47.0) % MCV 96.8 H (82.0-94.0) fL MCH 31.0 (27.0-32.0) pg MCHC 32.0 L (33.0-38.0) g/dL RDW Coeff of Marcelo 18.6 H (11.0-15.0) % Plt Count 333 (150-400) 10^3/uL Neut % (Auto) 77.3 (35-85) % Lymph % (Auto) 13.8 (10-55) % [place] % (Auto) 8.1 (0-16) % Eos % (Auto) 0.7 (0-5) % Baso % (Auto) 0.1 (0-3) % Neut # (Auto) 5.27 (1.80-7.00) 10^3/uL Lymph # (Auto) 0.94 L (1.00-4.80) 10^3/uL [place] # (Auto) 0.55 (0.00-0.80) 10^3/uL Eos # (Auto) 0.05 (0.00-0.45) 10^3/uL Baso # (Auto) 0.01 10^3/uL PT 20.5 H (9.7-12.3) SEC INR 2.08 H (0.92-1.18) Sodium 139 (136-145) mEq/L Potassium 4.0 (3.5-5.0) mEq/L Chloride 105 (98-106) mEq/L Carbon Dioxide 27 (21-32) mmol/L BUN 14 (7-18) mg/dL Creatinine 0.9 (0.6-1.0) mg/dL Est Cr Clr Drug Dosing 33.52 mL/min Estimated GFR (MDRD) 59 L (>=60) mL/min Glucose 94 (75-99) mg/dL Calcium 8.1 L (8.4-10.1) mg/dL C-Reactive Protein 10.0 H (0.2-0.8) mg/dL NT-Pro-B Natriuret Pep 3411 H (0-1000) pg/mL Nas Results Last 24 Hours: Microbiology 12/19/17 11:21 Occult Blood - Preliminary Stool / Feces 12/18/17 10:22 Stool Aerobic Culture - Preliminary Stool / Feces Med Orders - Current: Current Medications Acetaminophen (Tylenol) 650 mg PO Q4H PRN PRN Reason: Pain (Mild 1-3)/fever Last Admin: 12/17/17 23:39 Dose: 650 mg Albuterol/Ipratropium (Duoneb 3.0-0.5 Mg/3 Ml) 3 ml NEB QID [facility] Last Admin: 12/20/17 11:42 Dose: 3 ml Atorvastatin Calcium (Lipitor) 5 mg PO DAILY [facility] Last Admin: 12/20/17 07:52 Dose: 5 mg Diltiazem HCl (Cardizem Cd) 240 mg PO DAILY [facility] Last Admin: 12/20/17 07:54 Dose: 240 mg Clindamycin Phosphate 300 mg/ (Premix) 50 mls @ 100 mls/hr IV 0200,0800,1400, 1999 [facility] Last Admin: 12/20/17 13:58 Dose: 100 mls/hr Magnesium Hydroxide (Milk Of Magnesia) 30 ml PO Q12H PRN PRN Reason: Constipation Metoprolol Tartrate (Lopressor) 50 mg PO BID [facility] Last Admin: 12/20/17 07:53 Dose: 50 mg Mirtazapine (Remeron) 15 mg PO BEDTIME [facility] Last Admin: 12/19/17 19:16 Dose: 15 mg Nitroglycerin (Nitrostat) 0.4 mg SL ASDIRECTED [facility] Non-Formulary Medication (Cranberry Fruit [Cranberry]) 2 tab PO DAILY [facility] Last Admin: 12/20/17 08:11 Dose: Not Given Ondansetron HCl (Zofran) 4 mg IV Q6H PRN PRN Reason: Nausea/Vomiting Pantoprazole Sodium (Protonix Iv) 40 mg IVPUSH Q24H [facility] Last Admin: 12/19/17 21:35 Dose: 40 mg Sertraline HCl (Zoloft) 50 mg PO DAILY [facility] Last Admin: 12/20/17 07:53 Dose: 50 mg Warfarin Sodium (Coumadin) 1 mg PO MOTH [facility] Last Admin: 12/20/17 11:41 Dose: 1 mg Warfarin Sodium (Coumadin) 0.5 mg PO SUWEFR [facility] Last Admin: 12/19/17 11:30 Dose: 0.5 mg Discontinued Medications Ceftriaxone Sodium (Rocephin) 1 gm IVPUSH Q24H [facility] Last Admin: 12/17/17 23:40 Dose: 1 gm Ceftriaxone Sodium (Rocephin) 1 gm IVPUSH DAILY@1999 [facility] Diltiazem HCl (Cardizem Cd) 120 mg PO DAILY [facility] Diltiazem HCl (Cardizem Cd) 120 mg PO DAILY@1999 [facility] Last Admin: 12/18/17 19:30 Dose: 120 mg Diltiazem HCl (Cardizem Cd) 240 mg PO DAILY@1999 [facility] Last Admin: 12/19/17 10:50 Dose: Not Given Diltiazem HCl (Cardizem Cd) 240 mg PO ONETIME ONE Stop: 12/19/17 09:35 Last Admin: 12/19/17 09:45 Dose: 240 mg Furosemide (Lasix) 20 mg IVPUSH ONETIME ONE Stop: 12/17/17 22:11 Last Admin: 12/17/17 23:38 Dose: 20 mg Azithromycin 500 mg/ Sodium (Chloride) 250 mls @ 250 mls/hr IV Q24H [facility] Last Admin: 12/17/17 23:45 Dose: 250 mls/hr Sodium Chloride (Normal Saline) 1,000 mls @ 50 mls/hr IV ASDIRECTED [facility] Azithromycin 500 mg/ Sodium (Chloride) 250 mls @ 250 mls/hr IV DAILY@2000 [facility] Clindamycin Phosphate 300 mg/ (Premix) 50 mls @ 100 mls/hr IV Q6H [facility] Last Admin: 12/18/17 12:51 Dose: Not Given Clindamycin Phosphate 300 mg/ (Premix) 50 mls @ 100 mls/hr IV Q6H [facility] Non-Formulary Medication (Warfarin) 0.5 mg PO ASDIRECTED [facility] Non-Formulary Medication (Warfarin) 1 mg PO DAILY [facility] Non-Formulary Medication (Warfarin) 0.5 mg PO SUWEFRSA [facility] Non-Formulary Medication (Warfarin) 0.5 mg PO SUWEFRSA [facility] Pantoprazole Sodium (Protonix) 40 mg PO DAILY [facility] Last Admin: 12/19/17 07:12 Dose: 40 mg - Exam General: Alert, Oriented HEENT: Mucous Membr. Moist/[place] Neck: Supple Lungs: Rhonchi Cardiovascular: Regular Rate, Regular Rhythm GI/Abdominal Exam: Normal Bowel Sounds, Soft, Non-Tender Extremities: Normal Inspection, No Pedal Edema Skin: Warm, Dry Neurological: No New Focal Deficit - Problem List & Annotations (1) Aspiration pneumonia SNOMED Code(s): 387935642 Code(s): J69.0 - PNEUMONITIS DUE TO INHALATION OF FOOD AND VOMIT Status: Acute Priority: High Current Visit: Yes Qualifiers: Laterality: left Lung location: lower lobe of lung - Problem List Review Problem List Initiated/Reviewed/Updated: Yes - My Orders Last 24 Hours: My Active Orders 12/19/17 20:00 Pantoprazole [ProTONIX IV] 40 mg IVPUSH Q24H 12/21/17 05:11 Chest 2V [CR] AM C-REACTIVE PROTEIN [CHEM] AM CBC WITH AUTO DIFF [HEME] AM - Assessment Assessment:: Aspiration Pneumonia - Plan Plan:: Patient sitting up in bed, states feeling weak but denies shortness of breath. Patient had an episode of SOB while eating last night and daughter was worried that she had choked and aspirated. Apparently was having abdominal pain at that time. She had been very ill a month ago with CHF, was transferred to [facility]. Was hospitalized there for a week and spent 3 weeks at [facility] for rehab. Has been home a week and doing well. Daughter also relates that she has had diarrhea since coming home. Labs from admit noted. WBC normal. CRP 11.7, ProBNP 4646. Will switch patient to Cleocin and stop Rocephin and Zithromax. Repeat labs in am. Awaiting stool collection as has not had any diarrhea stools since admission. 12-19-2017 Patient doing well this am, just states "is tired". Denies shortness of breath. Has infrequent cough. Oxygen sats are stable. Lung sounds note rhonchi/crackles in the LLL. Tolerating meals. Labs noted. Hemoglobin down to 9.2, CRP stable at 11.9, WBC normal. Patient converted to atrial fib last night, is on Coumadin. Cardizem was started due to heart rate of 130s. Heart rate now at this time, 103. Denies any chest pain or palpitations during that time or now. Will continue with Cardizem and increase to 240 mg as is already on 50 mg BID metoprolol. Will continue with Cleocin. Obtain occult stools x3. Possible discharge home in next 24-48 hours. 12-20-2017 Patient states feeling more weak today. No shortness of breath. Does admit to mild cough. Weight is up, ProBNP is stable, improved from admit. Continues to note rhonchi/crackles in the LLL. Labs are stable, hemoglobin up to 9.6. Occult stool had questionable positive result, other 2 are negative. INR 2.08. Will repeat CBC and Chest xray in the am. Continue Cleocin. Consider discharge tomorrow.
[2017-12-20] MEDS: Pantoprazole 40 MG Vial IVPUSH SCH (19:44)
[2017-12-20] MEDS: Mirtazapine 15 MG Tab PO SCH (19:48)
[2017-12-21] MEDS: Clindamycin Phosphate in D5W 300 MG in Premix Bag 1 BAG IV SCH ×4 (01:47→07:46)
[2017-12-21 07:19] VITALS: BP 129/53
[2017-12-21] MEDS: Diltiazem 120 MG Cap.CD PO SCH (07:42)
[2017-12-21] MEDS: Albuterol/Ipratropium 3.0-0.5 MG/3 ML Neb Soln NEB SCH (07:42)
[2017-12-21] MEDS: Metoprolol Tartrate 50 MG Tab PO SCH (07:43)
[2017-12-21] MEDS: atorvaSTATin 10 MG Tab PO SCH (07:43)
[2017-12-21] MEDS: CRANBERRY FRUIT PO SCH (07:44)
[2017-12-21] MEDS: Sertraline 100 MG Tab PO SCH (07:44)
--- NOTE | 2017-12-21 14:27 | PCM.DCSUM1 ---
Discharge Summary - Hospital Course Free Text/Narrative:: Patient presented to ER with history of CHF, PE, CVA and dementia presented to the ER per EMS with vomiting and shortness of breath. Daughter had reported that she had nausea throughout the day, vomited x2 and had terrible stomach pain. States was very tender when she pushed on her abdomen. Has also had diarrhea over the last week since returning home from the group home. Patient had been transferred out a month ago for CHF and PE. Was hospitalized and anticoagulated there, was at [facility] to recover. At supper on night of admit, patient started coughing when she was eating and got very short of breath. Daughter worries that she may have aspirated. Now feels she is dehydrated which has increased her confusion. No fevers. - Discharge Data Discharge Date: 12/21/17 Discharge Disposition: DC/Tfer W/I Hosp To [place] [id number] Condition: Fair - Discharge Diagnosis/Problem(s) (1) Aspiration pneumonia SNOMED Code(s): 235785245 ICD Code: J69.0 - PNEUMONITIS DUE TO INHALATION OF FOOD AND VOMIT Status: Acute Priority: High Qualifiers: Laterality: left Lung location: lower lobe of lung - Patient Summary/Data Complications: none Hospital Course: Patient has had slow improvement of her overall status but does remain very weak. Continues to have a mild cough, rhonchi in the bases. Denies shortness of breath. Oxygen sats are good. Appetite is fair. She is ambulating short distances with staff and the walker. WBC 11.9 on admit, has stabilized down to 5.5. Hemoglobin did drop during stay. Hemocults done, one with questionable trace positive. Has been covered with IV Protonix. Concerns with mild CHF on admit, ProBNP 4646. Weight did increase after IV fluids but ProBNP improved to 3411. CRP peaked at 11.9, down to 9.5 today. Will transfer to swing bed, continue IV Cleocin and nebs. PT. IV Lasix. - Patient Instructions Diet: Usual Diet as Tolerated Activity: As Tolerated - Discharge Plan Home Medications: Home Meds Metoprolol Tartrate 50 mg PO BID 08/11/15 [History] Sertraline HCl 50 mg PO DAILY 08/11/15 [History] atorvaSTATin [Lipitor] 5 mg PO DAILY 08/11/15 [History] Mirtazapine 15 mg PO BEDTIME 07/04/17 [History] Cranberry Fruit [Cranberry] 2 tab PO DAILY 04/18/17 [History] Melatonin 5 mg PO DAILY 04/18/17 [History] Multivitamin [Daily Alexander] 1 each PO DAILY 04/18/17 [History] Nitroglycerin [Nitrostat] 0.4 mg SL ASDIRECTED 04/18/17 [History] Pantoprazole [ProTONIX] 40 mg PO DAILY 12/17/17 [History] Warfarin [Coumadin] 0.5 mg PO ASDIRECTED 12/17/17 [History] Warfarin [Coumadin] 1 mg PO DAILY 12/17/17 [History] Patient Handouts: Aspiration Pneumonia Forms: ED Department Discharge Referrals: Nathaniel Crews MD [Primary Care Provider] - - Discharge Summary/Plan Comment DC Time >30 min.: No - General Info Date of Service: 12/21/17 Admission Dx/Problem (Free Text: Aspiration Pneumonia Functional Status: Reports: Pain Controlled, Tolerating Diet, Ambulating - Review of Systems General: Reports: Weakness, Fatigue. Denies: Fever HEENT: Reports: Sinus Congestion, Rhinitis. Denies: Sore Throat Pulmonary: Reports: Cough. Denies: Shortness of Breath, Sputum Cardiovascular: Denies: Chest Pain, Edema, Lightheadedness Gastrointestinal: Reports: Decreased Appetite. Denies: Abdominal Pain, Nausea, Vomiting Genitourinary: Reports: No Symptoms Musculoskeletal: Reports: No Symptoms Skin: Reports: No Symptoms Neurological: Reports: Pre-Existing Deficit - Patient Data Vitals - Most Recent: Last Vital Signs Temp 98.0 F 12/21/17 07:18 Pulse 74 12/21/17 07:43 Resp 16 12/21/17 07:18 BP 129/53 L 12/21/17 07:43 Pulse Ox 93 L 12/21/17 07:18 Weight - Most Recent: 133 lb 6.4 oz I&O - Last 24 hours: Intake & Output 12/20/17 12/21/17 12/21/17 22:59 06:59 14:59 Intake Total 990 250 100 Output Total 300 50 Balance 990 -50 50 Lab Results - Last 24 hrs: Laboratory Results - last 24 hr 12/21/17 12/21/17 Range/Units 06:55 06:55 WBC 5.5 (5.0-10.0) 10^3/uL RBC 3.08 L (4.00-5.50) 10^6/uL Hgb 9.5 L (12.0-16.0) g/dL Hct 30.0 L (37.0-47.0) % MCV 97.4 H (82.0-94.0) fL MCH 30.8 (27.0-32.0) pg MCHC 31.7 L (33.0-38.0) g/dL RDW Coeff of Marcelo 18.7 H (11.0-15.0) % Plt Count 329 (150-400) 10^3/uL Neut % (Auto) 72.0 (35-85) % Lymph % (Auto) 17.7 (10-55) % [place] % (Auto) 9.0 (0-16) % Eos % (Auto) 1.1 (0-5) % Baso % (Auto) 0.2 (0-3) % Neut # (Auto) 3.94 (1.80-7.00) 10^3/uL Lymph # (Auto) 0.97 L (1.00-4.80) 10^3/uL [place] # (Auto) 0.49 (0.00-0.80) 10^3/uL Eos # (Auto) 0.06 (0.00-0.45) 10^3/uL Baso # (Auto) 0.01 10^3/uL C-Reactive Protein 9.5 H (0.2-0.8) mg/dL SHIRA Results - Last 24 hrs: Microbiology 12/18/17 10:22 Stool Aerobic Culture - Final Stool / Feces 12/19/17 11:21 Occult Blood - Preliminary Stool / Feces Med Orders - Current: Current Medications Discontinued Medications Acetaminophen (Tylenol) 650 mg PO Q4H PRN PRN Reason: Pain (Mild 1-3)/fever Last Admin: 12/17/17 23:39 Dose: 650 mg Albuterol/Ipratropium (Duoneb 3.0-0.5 Mg/3 Ml) 3 ml NEB QID [facility] Last Admin: 12/21/17 07:42 Dose: 3 ml Atorvastatin Calcium (Lipitor) 5 mg PO DAILY [facility] Last Admin: 12/21/17 07:43 Dose: 5 mg Ceftriaxone Sodium (Rocephin) 1 gm IVPUSH Q24H [facility] Last Admin: 12/17/17 23:40 Dose: 1 gm Ceftriaxone Sodium (Rocephin) 1 gm IVPUSH DAILY@1999 [facility] Diltiazem HCl (Cardizem Cd) 120 mg PO DAILY [facility] Diltiazem HCl (Cardizem Cd) 120 mg PO DAILY@1999 [facility] Last Admin: 12/18/17 19:30 Dose: 120 mg Diltiazem HCl (Cardizem Cd) 240 mg PO DAILY@1999 [facility] Last Admin: 12/19/17 10:50 Dose: Not Given Diltiazem HCl (Cardizem Cd) 240 mg PO DAILY [facility] Last Admin: 12/21/17 07:42 Dose: 240 mg Diltiazem HCl (Cardizem Cd) 240 mg PO ONETIME ONE Stop: 12/19/17 09:35 Last Admin: 12/19/17 09:45 Dose: 240 mg Furosemide (Lasix) 20 mg IVPUSH ONETIME ONE Stop: 12/17/17 22:11 Last Admin: 12/17/17 23:38 Dose: 20 mg Azithromycin 500 mg/ Sodium (Chloride) 250 mls @ 250 mls/hr IV Q24H [facility] Last Admin: 12/17/17 23:45 Dose: 250 mls/hr Sodium Chloride (Normal Saline) 1,000 mls @ 50 mls/hr IV ASDIRECTED [facility] Azithromycin 500 mg/ Sodium (Chloride) 250 mls @ 250 mls/hr IV DAILY@1999 [facility] Clindamycin Phosphate 300 mg/ (Premix) 50 mls @ 100 mls/hr IV Q6H [facility] Last Admin: 12/18/17 12:51 Dose: Not Given Clindamycin Phosphate 300 mg/ (Premix) 50 mls @ 100 mls/hr IV Q6H [facility] Clindamycin Phosphate 300 mg/ (Premix) 50 mls @ 100 mls/hr IV 0200,0800,1400, 1999 [facility] Last Admin: 12/21/17 07:46 Dose: 100 mls/hr Magnesium Hydroxide (Milk Of Magnesia) 30 ml PO Q12H PRN PRN Reason: Constipation Metoprolol Tartrate (Lopressor) 50 mg PO BID [facility] Last Admin: 12/21/17 07:43 Dose: 50 mg Mirtazapine (Remeron) 15 mg PO BEDTIME [facility] Last Admin: 12/20/17 19:48 Dose: 15 mg Nitroglycerin (Nitrostat) 0.4 mg SL ASDIRECTED [facility] Non-Formulary Medication (Cranberry Fruit [Cranberry]) 2 tab PO DAILY [facility] Last Admin: 12/21/17 07:44 Dose: Not Given Non-Formulary Medication (Warfarin) 0.5 mg PO ASDIRECTED [facility] Non-Formulary Medication (Warfarin) 1 mg PO DAILY [facility] Non-Formulary Medication (Warfarin) 0.5 mg PO SUWEFRSA [facility] Non-Formulary Medication (Warfarin) 0.5 mg PO SUWEFRSA [facility] Ondansetron HCl (Zofran) 4 mg IV Q6H PRN PRN Reason: Nausea/Vomiting Pantoprazole Sodium (Protonix) 40 mg PO DAILY [facility] Last Admin: 12/19/17 07:12 Dose: 40 mg Pantoprazole Sodium (Protonix Iv) 40 mg IVPUSH Q24H [facility] Last Admin: 12/20/17 19:44 Dose: 40 mg Sertraline HCl (Zoloft) 50 mg PO DAILY [facility] Last Admin: 12/21/17 07:44 Dose: 50 mg Warfarin Sodium (Coumadin) 1 mg PO MOTH [facility] Last Admin: 12/20/17 11:41 Dose: 1 mg Warfarin Sodium (Coumadin) 0.5 mg PO SUWEFRSA [facility] Last Admin: 12/19/17 11:30 Dose: 0.5 mg - Exam General: Reports: Alert, Oriented HEENT: Reports: Mucous Membr. Moist/[place] Neck: Reports: Supple Lungs: Reports: Normal Respiratory Effort, Rhonchi Cardiovascular: Reports: Irregular Rhythm GI/Abdominal Exam: Normal Bowel Sounds, Soft, Non-Tender Skin: Reports: Warm, Dry Neurological: Reports: No New Focal Deficit
== END 2017-12-21 09:00 | disposition swing bed (61) | DRG 177 ==
LOC: CC.ED 20:45 → CC.MS 22:01 → UNDOADMIN 22:10 → CC.MS 22:10
PROVIDERS: ADMIT Nurse Practitioner Family; ATTEND Family Medicine
DX: J69.0 Pneumonitis due to inhalation of food and vomit (principal); I26.99 Other pulmonary embolism without acute cor pulmonale; A09 Infectious gastroenteritis and colitis, unspecified; E86.0 Dehydration; F03.90 Unspecified dementia, unspecified severity, without behavioral disturbance, psychotic disturbance, mood disturbance, and anxiety; K21.9 Gastro-esophageal reflux disease without esophagitis; I11.0 Hypertensive heart disease with heart failure; I50.9 Heart failure, unspecified; R79.1 Abnormal coagulation profile; E78.5 Hyperlipidemia, unspecified; R10.9 Unspecified abdominal pain; K59.09 Other constipation; F32.9 Major depressive disorder, single episode, unspecified; R11.2 Nausea with vomiting, unspecified; R05 Cough; R53.1 Weakness; R06.02 Shortness of breath; R53.83 Other fatigue; E78.00 Pure hypercholesterolemia, unspecified; R68.83 Chills (without fever); R41.0 Disorientation, unspecified; R06.09 Other forms of dyspnea; R06.01 Orthopnea; J31.0 Chronic rhinitis; I48.91 Unspecified atrial fibrillation; Z90.710 Acquired absence of both cervix and uterus; Z87.440 Personal history of urinary (tract) infections; Z86.73 Personal history of transient ischemic attack (TIA), and cerebral infarction without residual deficits; Z88.0 Allergy status to penicillin; Z88.8 Allergy status to other drugs, medicaments and biological substances; Z91.040 Latex allergy status; Z79.01 Long term (current) use of anticoagulants; Z79.899 Other long term (current) drug therapy
CPT/HCPCS: 36415; 71046; 80048; 80053; 81001; 82270; 83880; 84484; 85025; 85379; 85610; 86140; 87045; 87046; 87493; 93005; 94640; 99284; A9270-GY; C9113; J0456; J0696; J1940; J7050

== ENCOUNTER 2017-12-21 08:25 | Inpatient (IN) | payer MEDICARE, OTHER ==
[2017-12-21] MEDS ORDERED: Magnesium Hydroxide 400 MG/5 ML Susp 30 ML Cup PO PRN (09:34)
[2017-12-21] MEDS ORDERED: Ondansetron 4 MG/2 ML SDV IV PRN (09:34)
[2017-12-21] MEDS ORDERED: Nitroglycerin 0.4 MG Tab.SL SL SCH (09:34)
[2017-12-21] MEDS: Furosemide 40 MG/4 ML VIAL IVPUSH SCH (11:27)
[2017-12-21] MEDS: Albuterol/Ipratropium 3.0-0.5 MG/3 ML Neb Soln NEB SCH ×3 (11:27→20:01)
[2017-12-21] MEDS: Clindamycin Phosphate in D5W 300 MG in Premix Bag 1 BAG IV SCH ×4 (14:01→19:47)
[2017-12-21] MEDS: Pantoprazole 40 MG Vial IVPUSH SCH (19:41)
[2017-12-21] MEDS: Metoprolol Tartrate 50 MG Tab PO SCH (19:52)
[2017-12-21] MEDS: Mirtazapine 15 MG Tab PO SCH (19:52)
[2017-12-21] MEDS: Acetaminophen 325 MG Tab PO PRN (19:52)
[2017-12-22] MEDS: Clindamycin Phosphate in D5W 300 MG in Premix Bag 1 BAG IV SCH ×8 (01:44→19:24)
[2017-12-22] MEDS ORDERED: CRANBERRY FRUIT PO SCH (08:00)
[2017-12-22] MEDS: Diltiazem 120 MG Cap.CD PO SCH (08:26)
[2017-12-22] MEDS: atorvaSTATin 10 MG Tab PO SCH (08:27)
[2017-12-22] MEDS: Sertraline 100 MG Tab PO SCH (08:27)
[2017-12-22] MEDS: Albuterol/Ipratropium 3.0-0.5 MG/3 ML Neb Soln NEB SCH ×4 (08:28→20:00)
[2017-12-22] MEDS: Metoprolol Tartrate 50 MG Tab PO SCH ×2 (08:28→19:25)
[2017-12-22] MEDS: Furosemide 40 MG/4 ML VIAL IVPUSH SCH (08:33)
[2017-12-22] MEDS: Pantoprazole 40 MG Vial IVPUSH SCH (19:20)
[2017-12-22] MEDS: Mirtazapine 15 MG Tab PO SCH (19:25)
[2017-12-22] MEDS: Acetaminophen 325 MG Tab PO PRN (19:25)
[2017-12-23] MEDS: Clindamycin Phosphate in D5W 300 MG in Premix Bag 1 BAG IV SCH ×8 (01:53→19:21)
[2017-12-23] MEDS: Albuterol/Ipratropium 3.0-0.5 MG/3 ML Neb Soln NEB SCH ×4 (08:02→20:00)
[2017-12-23] MEDS: Sertraline 100 MG Tab PO SCH (08:03)
[2017-12-23] MEDS: atorvaSTATin 10 MG Tab PO SCH (08:04)
[2017-12-23] MEDS: Metoprolol Tartrate 50 MG Tab PO SCH ×2 (08:04→19:22)
[2017-12-23] MEDS: Diltiazem 120 MG Cap.CD PO SCH (08:05)
[2017-12-23] MEDS: Furosemide 40 MG/4 ML VIAL IVPUSH SCH (09:15)
[2017-12-23] MEDS: Pantoprazole 40 MG Vial IVPUSH SCH (19:14)
[2017-12-23] MEDS: Mirtazapine 15 MG Tab PO SCH (19:22)
[2017-12-24] MEDS: Clindamycin Phosphate in D5W 300 MG in Premix Bag 1 BAG IV SCH ×8 (01:30→19:44)
[2017-12-24] MEDS ORDERED: Furosemide 40 MG/4 ML VIAL IVPUSH ONE (08:15)
[2017-12-24] MEDS: Diltiazem 120 MG Cap.CD PO SCH (08:18)
[2017-12-24] MEDS: Metoprolol Tartrate 50 MG Tab PO SCH ×2 (08:19→19:43)
[2017-12-24] MEDS: Albuterol/Ipratropium 3.0-0.5 MG/3 ML Neb Soln NEB SCH ×4 (08:19→19:43)
[2017-12-24] MEDS: Sertraline 100 MG Tab PO SCH (08:19)
[2017-12-24] MEDS: atorvaSTATin 10 MG Tab PO SCH (08:19)
[2017-12-24] MEDS: Acetaminophen 325 MG Tab PO PRN (19:42)
[2017-12-24] MEDS: Mirtazapine 15 MG Tab PO SCH (19:42)
[2017-12-24] MEDS: Pantoprazole 40 MG Vial IVPUSH SCH (19:42)
[2017-12-25] MEDS: Clindamycin Phosphate in D5W 300 MG in Premix Bag 1 BAG IV SCH ×8 (01:39→19:08)
[2017-12-25] MEDS: PROBIOTIC GUMMIES PO SCH (07:43)
[2017-12-25] MEDS: Furosemide 40 MG/4 ML VIAL IVPUSH SCH (07:43)
[2017-12-25] MEDS: Sertraline 100 MG Tab PO SCH (07:43)
[2017-12-25] MEDS: Diltiazem 120 MG Cap.CD PO SCH (07:44)
[2017-12-25] MEDS: Albuterol/Ipratropium 3.0-0.5 MG/3 ML Neb Soln NEB SCH ×4 (07:44→21:12)
[2017-12-25] MEDS: atorvaSTATin 10 MG Tab PO SCH (07:45)
[2017-12-25] MEDS: Metoprolol Tartrate 50 MG Tab PO SCH ×2 (07:46→19:07)
[2017-12-25] MEDS ORDERED: Oxyquinoline/Emollient 0.3% Oint 1 OZ Canister TOP PRN (15:22)
[2017-12-25] MEDS: Mirtazapine 15 MG Tab PO SCH (19:07)
[2017-12-25] MEDS: Pantoprazole 40 MG Vial IVPUSH SCH (19:08)
[2017-12-26] MEDS: Clindamycin Phosphate in D5W 300 MG in Premix Bag 1 BAG IV SCH ×8 (02:17→19:50)
[2017-12-26] MEDS: PROBIOTIC GUMMIES PO SCH (06:08)
[2017-12-26] MEDS: atorvaSTATin 10 MG Tab PO SCH (07:50)
[2017-12-26] MEDS: Metoprolol Tartrate 50 MG Tab PO SCH ×2 (07:51→19:51)
[2017-12-26] MEDS: Sertraline 100 MG Tab PO SCH (07:51)
[2017-12-26] MEDS: Diltiazem 120 MG Cap.CD PO SCH (07:52)
[2017-12-26] MEDS: Albuterol/Ipratropium 3.0-0.5 MG/3 ML Neb Soln NEB SCH ×4 (07:52→19:51)
[2017-12-26] MEDS: Furosemide 40 MG/4 ML VIAL IVPUSH SCH (07:52)
[2017-12-26] MEDS: Pantoprazole 40 MG Vial IVPUSH SCH (19:52)
[2017-12-26] MEDS: Mirtazapine 15 MG Tab PO SCH (19:52)
[2017-12-26] MEDS: Acetaminophen 325 MG Tab PO PRN (22:34)
[2017-12-27] MEDS: Clindamycin Phosphate in D5W 300 MG in Premix Bag 1 BAG IV SCH ×2 (01:25)
[2017-12-27] MEDS: Albuterol/Ipratropium 3.0-0.5 MG/3 ML Neb Soln NEB SCH ×4 (08:14→20:12)
[2017-12-27] MEDS: PROBIOTIC GUMMIES PO SCH (08:14)
[2017-12-27] MEDS: Diltiazem 120 MG Cap.CD PO SCH (08:14)
[2017-12-27] MEDS: Furosemide 40 MG/4 ML VIAL IVPUSH SCH (08:15)
[2017-12-27] MEDS: Metoprolol Tartrate 50 MG Tab PO SCH ×2 (08:15→19:17)
[2017-12-27] MEDS: Sertraline 100 MG Tab PO SCH (08:15)
[2017-12-27] MEDS: atorvaSTATin 10 MG Tab PO SCH (08:15)
[2017-12-27] MEDS: Pantoprazole 40 MG Vial IVPUSH SCH (19:17)
[2017-12-27] MEDS: Mirtazapine 15 MG Tab PO SCH (19:17)
[2017-12-27] MEDS: Pantoprazole 40 MG Tab.CR PO SCH (20:12)
[2017-12-28] MEDS: Pantoprazole 40 MG Tab.CR PO SCH (06:39)
[2017-12-28] MEDS: PROBIOTIC GUMMIES PO SCH (06:39)
[2017-12-28] MEDS: Albuterol/Ipratropium 3.0-0.5 MG/3 ML Neb Soln NEB SCH ×4 (07:26→19:22)
[2017-12-28] MEDS: Sertraline 100 MG Tab PO SCH (07:27)
[2017-12-28] MEDS: Diltiazem 120 MG Cap.CD PO SCH (07:28)
[2017-12-28] MEDS: Metoprolol Tartrate 50 MG Tab PO SCH ×2 (07:28→20:51)
[2017-12-28] MEDS: atorvaSTATin 10 MG Tab PO SCH (07:29)
[2017-12-28] MEDS: Furosemide 40 MG Tab PO SCH (08:44)
[2017-12-28] MEDS: Furosemide 40 MG/4 ML VIAL IVPUSH SCH (08:45)
[2017-12-28] MEDS: Mirtazapine 15 MG Tab PO SCH (19:21)
[2017-12-29] MEDS: Acetaminophen 325 MG Tab PO PRN (00:36)
[2017-12-29] MEDS: PROBIOTIC GUMMIES PO SCH (07:19)
[2017-12-29] MEDS: Pantoprazole 40 MG Tab.CR PO SCH (07:19)
[2017-12-29] MEDS: Diltiazem 120 MG Cap.CD PO SCH (08:05)
[2017-12-29] MEDS: Furosemide 40 MG Tab PO SCH (08:06)
[2017-12-29] MEDS: Albuterol/Ipratropium 3.0-0.5 MG/3 ML Neb Soln NEB SCH ×4 (08:06→19:42)
[2017-12-29] MEDS: atorvaSTATin 10 MG Tab PO SCH (08:06)
[2017-12-29] MEDS: Sertraline 100 MG Tab PO SCH (08:07)
[2017-12-29] MEDS: Metoprolol Tartrate 50 MG Tab PO SCH ×2 (08:07→19:42)
[2017-12-29] MEDS: Mirtazapine 15 MG Tab PO SCH (19:42)
[2017-12-30] MEDS: Pantoprazole 40 MG Tab.CR PO SCH (06:08)
[2017-12-30] MEDS: PROBIOTIC GUMMIES PO SCH (06:08)
[2017-12-30] MEDS: Diltiazem 120 MG Cap.CD PO SCH (07:17)
[2017-12-30] MEDS: Furosemide 40 MG Tab PO SCH (07:18)
[2017-12-30] MEDS: Albuterol/Ipratropium 3.0-0.5 MG/3 ML Neb Soln NEB SCH ×4 (07:18→19:26)
[2017-12-30] MEDS: atorvaSTATin 10 MG Tab PO SCH (07:18)
[2017-12-30] MEDS: Sertraline 100 MG Tab PO SCH (07:19)
[2017-12-30] MEDS: Metoprolol Tartrate 50 MG Tab PO SCH ×2 (07:19→19:25)
[2017-12-30] MEDS: Mirtazapine 15 MG Tab PO SCH (19:25)
[2017-12-30] MEDS: Acetaminophen 325 MG Tab PO PRN (22:05)
[2017-12-31] MEDS: Pantoprazole 40 MG Tab.CR PO SCH (06:17)
[2017-12-31] MEDS: PROBIOTIC GUMMIES PO SCH (06:18)
[2017-12-31] MEDS: Sertraline 100 MG Tab PO SCH (08:15)
[2017-12-31] MEDS: Diltiazem 120 MG Cap.CD PO SCH (08:15)
[2017-12-31] MEDS: atorvaSTATin 10 MG Tab PO SCH (08:16)
[2017-12-31] MEDS: Furosemide 40 MG Tab PO SCH (08:16)
[2017-12-31] MEDS: Albuterol/Ipratropium 3.0-0.5 MG/3 ML Neb Soln NEB SCH ×4 (08:17→19:51)
[2017-12-31] MEDS: Metoprolol Tartrate 50 MG Tab PO SCH ×2 (08:17→19:55)
[2017-12-31] MEDS: Mirtazapine 15 MG Tab PO SCH (19:51)
[2017-12-31] MEDS: Acetaminophen 325 MG Tab PO PRN (19:54)
[2018-01-01] MEDS: Pantoprazole 40 MG Tab.CR PO SCH (06:35)
[2018-01-01] MEDS: PROBIOTIC GUMMIES PO SCH (06:35)
[2018-01-01 08:01] VITALS: BP 102/45
[2018-01-01] MEDS: Diltiazem 120 MG Cap.CD PO SCH (08:07)
[2018-01-01] MEDS: Sertraline 100 MG Tab PO SCH (08:08)
[2018-01-01] MEDS: Albuterol/Ipratropium 3.0-0.5 MG/3 ML Neb Soln NEB SCH (08:08)
[2018-01-01] MEDS: Metoprolol Tartrate 50 MG Tab PO SCH (08:09)
[2018-01-01] MEDS: Furosemide 40 MG Tab PO SCH (08:09)
[2018-01-01] MEDS: atorvaSTATin 10 MG Tab PO SCH (08:09)
--- NOTE | 2018-01-02 20:11 | PCM.DCSUM1 ---
Discharge Summary - Hospital Course Free Text/Narrative:: Patient initially admitted to acute care with aspiration pneumonia. Had been discharged home [facility] in [place] a week prior after suffering from PE with atrial fib and CHF. She continued to have diarrhea through the week. Has been weak. Awoke the am of discharge with complaints of an upset stomach. Was at supper eat when started coughing and developed acute shortness of breath. Admitted with concerns of aspiration and started on IV antibiotics. Transferred to swing bed for ongoing IV antibiotics and physical therapy for strengthening. - Discharge Data Discharge Date: 01/01/18 Discharge Disposition: Home, W Home Health Agency 06 Condition: Fair - Patient Summary/Data Complications: none Consults: Consultations 12/21/17 09:34 Consult to Physical Therapy [PT Evaluation and Treatment] [CONS] Routine Hospital Course: Patient has had slow improvement of overall status. Lung sounds do continue to have rhonchi in the left base, coughs on occasion but has gained strength. Is afebrile. Ambulating with standby assist from staff. Does continue to have diarrhea at times. Is currently on probiotic for this as stool testing has been negative. Slow progression with PT. Does remain incontinent at times. Labs are stable. CHF stable. Discharge home on home health for pain, cardiopulmonary assessments and safety. Will also monitor INRs as ordered. PT to eval and tx for home safety, strengthening and safe self-care upon transition back home. Pt is currently homebound due to weakness, dementia, decreased activity tolerance and poor endurance. Pt. does require assist to ambulate stairs at home. Dr. Crews to follow the home health plan of care - Patient Instructions Diet: Usual Diet as Tolerated Activity: As Tolerated - Discharge Plan Prescriptions/Med Rec: Furosemide [Lasix] 40 mg PO DAILY #30 tablet Home Medications: Home Meds Metoprolol Tartrate 50 mg PO BID 08/11/15 [History] Sertraline HCl 50 mg PO DAILY 08/11/15 [History] atorvaSTATin [Lipitor] 5 mg PO DAILY 08/11/15 [History] Mirtazapine 15 mg PO BEDTIME 03/20/17 [History] Cranberry Fruit [Cranberry] 2 tab PO DAILY 04/18/17 [History] Melatonin 5 mg PO DAILY 04/18/17 [History] Multivitamin [Daily Alexander] 1 each PO DAILY 04/18/17 [History] Nitroglycerin [Nitrostat] 0.4 mg SL ASDIRECTED 04/18/17 [History] Pantoprazole [ProTONIX] 40 mg PO DAILY 12/17/17 [History] Warfarin [Coumadin] 0.5 mg PO ASDIRECTED 12/17/17 [History] Warfarin [Coumadin] 1 mg PO DAILY 12/17/17 [History] Furosemide [Lasix] 40 mg PO DAILY #30 tablet 01/01/18 [Rx] Non-Formulary Medication [NF Drug] 2 each PO ACBREAKFAST each 01/01/18 [Rx] Referrals: Nathaniel Crews MD [Primary Care Provider] - (Follow up with Dr. Crews in 3 weeks ) - Discharge Summary/Plan Comment DC Time >30 min.: No Discharge Summary/Plan Comment: Discharge home. Continue Coumadin and Lasix. Follow up with Dr. Crews as needed - General Info Date of Service: 01/01/18 Admission Dx/Problem (Free Text: Aspiration Pneumonia Functional Status: Reports: Pain Controlled, Tolerating Diet, Ambulating - Review of Systems General: Reports: Weakness, Fatigue, Malaise. Denies: Fever HEENT: Reports: No Symptoms Pulmonary: Reports: Shortness of Breath, Cough Cardiovascular: Denies: Chest Pain, Edema, Lightheadedness Gastrointestinal: Reports: Diarrhea. Denies: Abdominal Pain, Nausea, Vomiting Genitourinary: Reports: No Symptoms Musculoskeletal: Reports: No Symptoms Skin: Reports: No Symptoms - Patient Data Vitals - Most Recent: Last Vital Signs Temp 97.3 F 01/01/18 08:00 Pulse 80 01/01/18 08:09 Resp 16 01/01/18 08:00 BP 102/45 L 01/01/18 08:09 Pulse Ox 96 01/01/18 08:00 Weight - Most Recent: 106 lb 3.2 oz Med Orders - Current: Current Medications Discontinued Medications Acetaminophen (Tylenol) 650 mg PO Q4H PRN PRN Reason: Pain (Mild 1-3)/fever Last Admin: 12/31/17 19:54 Dose: 650 mg Albuterol/Ipratropium (Duoneb 3.0-0.5 Mg/3 Ml) 3 ml NEB QID [facility] Last Admin: 01/01/18 08:08 Dose: 3 ml Atorvastatin Calcium (Lipitor) 5 mg PO DAILY [facility] Last Admin: 01/01/18 08:09 Dose: 5 mg Diltiazem HCl (Cardizem Cd) 240 mg PO DAILY [facility] Last Admin: 01/01/18 08:07 Dose: 240 mg Furosemide (Lasix) 40 mg IVPUSH Q24H [facility] Last Admin: 12/23/17 09:15 Dose: 40 mg Furosemide (Lasix) 40 mg IVPUSH DAILY [facility] Last Admin: 12/28/17 08:45 Dose: Not Given Furosemide (Lasix) 40 mg IVPUSH ONETIME ONE Stop: 12/24/17 08:16 Last Admin: 12/24/17 08:19 Dose: 40 mg Furosemide (Lasix) 40 mg PO DAILY [facility] Last Admin: 01/01/18 08:09 Dose: 40 mg Clindamycin Phosphate 300 mg/ (Premix) 50 mls @ 100 mls/hr IV 0200,0800,1400, 2000 [facility] Stop: 12/27/17 07:00 Last Admin: 12/27/17 01:25 Dose: 100 mls/hr Magnesium Hydroxide (Milk Of Magnesia) 30 ml PO Q12H PRN PRN Reason: Constipation Metoprolol Tartrate (Lopressor) 50 mg PO BID [facility] Last Admin: 01/01/18 08:09 Dose: 50 mg Mirtazapine (Remeron) 15 mg PO BEDTIME [facility] Last Admin: 12/31/17 19:51 Dose: 15 mg Nitroglycerin (Nitrostat) 0.4 mg SL ASDIRECTED [facility] Ptom Probiotic (Gummies Chewable) 2 each PO ACBREAKFAST [facility] Last Admin: 01/01/18 06:35 Dose: 2 each Ondansetron HCl (Zofran) 4 mg IV Q6H PRN PRN Reason: Nausea/Vomiting Oxyquinoline Sulfate (Bag [place] Oint) 1 oz TOP ASDIRECTED PRN PRN Reason: Other Pantoprazole Sodium (Protonix Iv) 40 mg IVPUSH Q24H [facility] Last Admin: 12/26/17 19:52 Dose: 40 mg Pantoprazole Sodium (Protonix) 40 mg PO DAILY@0700 [facility] Last Admin: 01/01/18 06:35 Dose: 40 mg Sertraline HCl (Zoloft) 50 mg PO DAILY [facility] Last Admin: 01/01/18 08:08 Dose: 50 mg Warfarin Sodium (Coumadin) 1 mg PO MOTH [facility] Warfarin Sodium (Coumadin) 0.5 mg PO SUWEFRSA [facility] Last Admin: 12/23/17 12:29 Dose: 0.5 mg Warfarin Sodium (Coumadin) 1 mg PO MoTh@1200 [facility] Last Admin: 12/31/17 11:46 Dose: 1 mg Warfarin Sodium (Coumadin) 0.5 mg PO SuWeFrSa@1200 [facility] Last Admin: 12/30/17 11:51 Dose: 0.5 mg - Exam General: Reports: Alert, Oriented HEENT: Denies: Mucous Membr. Moist/[place] Neck: Reports: Supple Lungs: Reports: Decreased Breath Sounds, Rhonchi Cardiovascular: Reports: Irregular Rhythm GI/Abdominal Exam: Normal Bowel Sounds, Soft. No: Non-Tender Extremities: Normal Inspection, No Pedal Edema Skin: Reports: Warm, Dry Neurological: Reports: No New Focal Deficit
== END 2018-01-01 13:00 | disposition home health service (06) | DRG 177 ==
LOC: CC.MS 08:25 → UNDOADMIN 09:00 → CC.MS 09:00
PROVIDERS: ADMIT Family Medicine; ATTEND Family Medicine
DX: J69.0 Pneumonitis due to inhalation of food and vomit (principal); I26.99 Other pulmonary embolism without acute cor pulmonale; R53.1 Weakness; I50.9 Heart failure, unspecified; F03.90 Unspecified dementia, unspecified severity, without behavioral disturbance, psychotic disturbance, mood disturbance, and anxiety; K21.9 Gastro-esophageal reflux disease without esophagitis; I11.0 Hypertensive heart disease with heart failure; E78.5 Hyperlipidemia, unspecified; R10.9 Unspecified abdominal pain; R19.7 Diarrhea, unspecified; R53.83 Other fatigue; R11.2 Nausea with vomiting, unspecified; E86.0 Dehydration; K59.09 Other constipation; F32.9 Major depressive disorder, single episode, unspecified; Z86.711 Personal history of pulmonary embolism; Z86.73 Personal history of transient ischemic attack (TIA), and cerebral infarction without residual deficits; Z87.440 Personal history of urinary (tract) infections; Z88.0 Allergy status to penicillin; Z88.8 Allergy status to other drugs, medicaments and biological substances; Z91.040 Latex allergy status; Z79.01 Long term (current) use of anticoagulants; Z79.899 Other long term (current) drug therapy; Z90.710 Acquired absence of both cervix and uterus; R53.81 Other malaise
CPT/HCPCS: 36415; 85610; 87493; 94640; 97110-GP; 97162-GP; 97530-GP; A9270-GY; C9113; J1940

== ENCOUNTER 2018-01-08 09:03 | Inpatient (IN) | payer MEDICARE, OTHER ==
[2018-01-08] MEDS ORDERED: Ondansetron 4 MG/2 ML SDV IV PRN (11:49)
[2018-01-08] MEDS ORDERED: Ondansetron 4 MG Tab.DIS PO PRN (11:49)
[2018-01-08] MEDS ORDERED: Sodium Chloride 0.9% 10 ML Syringe FLUSH PRN (11:49)
[2018-01-08 12:30] LABS: CHLORIDE,CL 98 mEq/L (98-106); SODIUM,NA 137 mEq/L (136-145)
[2018-01-08] MEDS ORDERED: Nitroglycerin 0.4 MG Tab.SL SL PRN (15:45)
[2018-01-08] MEDS: cefTRIAXone 1 GM Vial IVPUSH SCH (16:54)
[2018-01-08] MEDS: Acetaminophen 325 MG Tab PO PRN ×2 (16:54→23:45)
[2018-01-08] MEDS ORDERED: Metoprolol Tartrate 50 MG Tab PO SCH (20:00)
[2018-01-08] MEDS: Metoprolol Tartrate 25 MG Tab PO SCH (20:02)
[2018-01-08] MEDS: Mirtazapine 15 MG Tab PO SCH (20:03)
[2018-01-09] MEDS: Pantoprazole 40 MG Tab.CR PO SCH (06:17)
[2018-01-09] MEDS ORDERED: Non-Formulary Medication 1 Each PO SCH (07:00)
[2018-01-09] MEDS: Metoprolol Tartrate 25 MG Tab PO SCH ×2 (08:00→20:08)
[2018-01-09] MEDS: atorvaSTATin 10 MG Tab PO SCH (08:00)
[2018-01-09] MEDS ORDERED: Non-Formulary Medication 1 Each (Melatonin [Melatonin] 5 MG) PO SCH (08:00)
[2018-01-09] MEDS: Furosemide 40 MG Tab PO SCH (08:01)
[2018-01-09] MEDS: Acetaminophen 325 MG Tab PO PRN (13:17)
[2018-01-09] MEDS: cefTRIAXone 1 GM Vial IVPUSH SCH (16:29)
[2018-01-09] MEDS: Mirtazapine 15 MG Tab PO SCH (20:09)
[2018-01-10] MEDS: Acetaminophen 325 MG Tab PO PRN (04:23)
[2018-01-10] MEDS: Pantoprazole 40 MG Tab.CR PO SCH (08:24)
[2018-01-10] MEDS: Metoprolol Tartrate 25 MG Tab PO SCH ×2 (08:25→19:30)
[2018-01-10] MEDS: atorvaSTATin 10 MG Tab PO SCH (08:25)
[2018-01-10] MEDS: Furosemide 40 MG Tab PO SCH (08:25)
[2018-01-10] MEDS: cefTRIAXone 1 GM Vial IVPUSH SCH (16:27)
[2018-01-10] MEDS: Mirtazapine 15 MG Tab PO SCH (19:30)
[2018-01-10] MEDS: Zolpidem 5 MG Tab PO PRN (21:26)
[2018-01-11] MEDS: Acetaminophen 325 MG Tab PO PRN ×3 (02:51→12:13)
[2018-01-11] MEDS: Pantoprazole 40 MG Tab.CR PO SCH (06:36)
[2018-01-11] MEDS: PROBIOTIC GUMMIES PO SCH ×3 (08:10→08:11)
[2018-01-11] MEDS: Furosemide 40 MG Tab PO SCH (08:11)
[2018-01-11] MEDS: atorvaSTATin 10 MG Tab PO SCH (08:11)
[2018-01-11] MEDS: Metoprolol Tartrate 25 MG Tab PO SCH ×2 (08:12→19:31)
[2018-01-11] MEDS: Oxyquinoline/Emollient 0.3% Oint 1 OZ Canister TOP PRN (14:54)
[2018-01-11] MEDS: Levofloxacin/Dextrose 5%-Water 250 MG in Premix Bag 1 BAG IV SCH (15:26)
[2018-01-11] MEDS: Mirtazapine 15 MG Tab PO SCH (19:31)
[2018-01-12] MEDS: Acetaminophen 325 MG Tab PO PRN (00:23)
[2018-01-12] MEDS: PROBIOTIC GUMMIES PO SCH (06:58)
[2018-01-12] MEDS: Pantoprazole 40 MG Tab.CR PO SCH (06:58)
[2018-01-12] MEDS: atorvaSTATin 10 MG Tab PO SCH (07:29)
[2018-01-12] MEDS: Metoprolol Tartrate 25 MG Tab PO SCH ×2 (07:31→19:40)
[2018-01-12] MEDS: Furosemide 40 MG Tab PO SCH (07:31)
[2018-01-12] MEDS: Levofloxacin/Dextrose 5%-Water 250 MG in Premix Bag 1 BAG IV SCH (17:58)
[2018-01-12] MEDS: Mirtazapine 15 MG Tab PO SCH (19:41)
[2018-01-13] MEDS: Acetaminophen 325 MG Tab PO PRN ×2 (00:51→06:04)
[2018-01-13] MEDS: Oxyquinoline/Emollient 0.3% Oint 1 OZ Canister TOP PRN (01:00)
[2018-01-13] MEDS: Pantoprazole 40 MG Tab.CR PO SCH (06:07)
[2018-01-13] MEDS: PROBIOTIC GUMMIES PO SCH (06:08)
[2018-01-13] MEDS: atorvaSTATin 10 MG Tab PO SCH (07:51)
[2018-01-13] MEDS: Furosemide 40 MG Tab PO SCH (07:52)
[2018-01-13] MEDS: Metoprolol Tartrate 25 MG Tab PO SCH ×2 (07:52→19:30)
[2018-01-13] MEDS: Levofloxacin/Dextrose 5%-Water 250 MG in Premix Bag 1 BAG IV SCH (15:36)
[2018-01-13] MEDS: Mirtazapine 15 MG Tab PO SCH (19:30)
[2018-01-13] MEDS: Zolpidem 5 MG Tab PO PRN (20:02)
[2018-01-13] MEDS: Acetaminophen/HYDROcodone 325-5 MG Tab PO PRN (22:39)
[2018-01-14] MEDS: PROBIOTIC GUMMIES PO SCH (08:36)
[2018-01-14] MEDS: Furosemide 40 MG Tab PO SCH (08:36)
[2018-01-14] MEDS: atorvaSTATin 10 MG Tab PO SCH (08:37)
[2018-01-14] MEDS: Pantoprazole 40 MG Tab.CR PO SCH (08:37)
[2018-01-14] MEDS: Metoprolol Tartrate 25 MG Tab PO SCH ×2 (08:37→20:00)
[2018-01-14] MEDS: Acetaminophen 325 MG Tab PO PRN ×2 (08:43→16:45)
[2018-01-14] MEDS: Levofloxacin/Dextrose 5%-Water 250 MG in Premix Bag 1 BAG IV SCH (15:55)
[2018-01-14] MEDS: Mirtazapine 15 MG Tab PO SCH (20:00)
[2018-01-14] MEDS: Acetaminophen/HYDROcodone 325-5 MG Tab PO PRN (23:11)
[2018-01-15] MEDS: Pantoprazole 40 MG Tab.CR PO SCH (06:30)
[2018-01-15] MEDS: PROBIOTIC GUMMIES PO SCH (06:30)
[2018-01-15] MEDS: Furosemide 40 MG Tab PO SCH (08:17)
[2018-01-15] MEDS: Metoprolol Tartrate 25 MG Tab PO SCH ×2 (08:17→19:46)
[2018-01-15] MEDS: atorvaSTATin 10 MG Tab PO SCH (08:17)
[2018-01-15] MEDS: Acetaminophen/HYDROcodone 325-5 MG Tab PO PRN (14:15)
[2018-01-15] MEDS: Levofloxacin/Dextrose 5%-Water 250 MG in Premix Bag 1 BAG IV SCH (16:43)
[2018-01-15] MEDS: Acetaminophen 500 MG Tab PO SCH (16:55)
[2018-01-15] MEDS: Mirtazapine 15 MG Tab PO SCH (19:47)
[2018-01-16] MEDS: PROBIOTIC GUMMIES PO SCH (06:10)
[2018-01-16] MEDS: Pantoprazole 40 MG Tab.CR PO SCH (06:10)
[2018-01-16] MEDS: Acetaminophen 500 MG Tab PO SCH ×2 (07:58→19:47)
[2018-01-16] MEDS: Metoprolol Tartrate 25 MG Tab PO SCH ×2 (08:00→19:46)
[2018-01-16] MEDS: Furosemide 40 MG Tab PO SCH (08:00)
[2018-01-16] MEDS: atorvaSTATin 10 MG Tab PO SCH (08:01)
--- NOTE | 2018-01-16 09:09 | PCM.SN ---
- Free Text/Narrative Note: Palliative care patient has continued to remain weak during stay. Does not ambulate with PT. Complaining of pain in her chest from having to use the gait belt. Not progressing at this point with assistance and PT so recommend using lift for transfers. Chest xray done yesterday, unremarkable for any rib issue, unchanged from previous xray. Discussion has been held with patient and daughter about home safety. Patient has expressed that she would [facility] to [facility] but when daughter here, states could go home. PT is not able to continue to provide services due to patient's inability/resistance to their service.
[2018-01-16] MEDS: Acetaminophen/HYDROcodone 325-5 MG Tab PO PRN (15:21)
[2018-01-16] MEDS: Levofloxacin/Dextrose 5%-Water 250 MG in Premix Bag 1 BAG IV SCH (16:03)
[2018-01-16] MEDS: Mirtazapine 15 MG Tab PO SCH (19:47)
[2018-01-17] MEDS: Pantoprazole 40 MG Tab.CR PO SCH (06:07)
[2018-01-17] MEDS: PROBIOTIC GUMMIES PO SCH (06:08)
[2018-01-17] MEDS: Metoprolol Tartrate 25 MG Tab PO SCH ×2 (08:04→19:46)
[2018-01-17] MEDS: Acetaminophen 500 MG Tab PO SCH ×2 (08:04→19:47)
[2018-01-17] MEDS: atorvaSTATin 10 MG Tab PO SCH (08:05)
[2018-01-17] MEDS: Furosemide 40 MG Tab PO SCH (08:05)
[2018-01-17] MEDS: Levofloxacin/Dextrose 5%-Water 250 MG in Premix Bag 1 BAG IV SCH (15:37)
[2018-01-17] MEDS: Acetaminophen/HYDROcodone 325-5 MG Tab PO PRN (17:01)
[2018-01-17] MEDS: Mirtazapine 15 MG Tab PO SCH (19:46)
[2018-01-18] MEDS: Pantoprazole 40 MG Tab.CR PO SCH (06:04)
[2018-01-18] MEDS: PROBIOTIC GUMMIES PO SCH (06:05)
[2018-01-18] MEDS: Furosemide 40 MG Tab PO SCH (07:43)
[2018-01-18] MEDS: atorvaSTATin 10 MG Tab PO SCH (07:43)
[2018-01-18] MEDS: Acetaminophen 500 MG Tab PO SCH ×2 (07:44→20:27)
[2018-01-18] MEDS: Metoprolol Tartrate 25 MG Tab PO SCH ×2 (07:44→20:28)
[2018-01-18] MEDS: Acetaminophen/HYDROcodone 325-5 MG Tab PO PRN (13:50)
[2018-01-18] MEDS: Mirtazapine 15 MG Tab PO SCH (20:27)
[2018-01-19] MEDS: Pantoprazole 40 MG Tab.CR PO SCH (06:37)
[2018-01-19] MEDS: PROBIOTIC GUMMIES PO SCH (06:38)
[2018-01-19] MEDS: Acetaminophen 500 MG Tab PO SCH ×2 (07:40→19:50)
[2018-01-19] MEDS: atorvaSTATin 10 MG Tab PO SCH (07:41)
[2018-01-19] MEDS: Furosemide 40 MG Tab PO SCH (07:42)
[2018-01-19] MEDS: Metoprolol Tartrate 25 MG Tab PO SCH ×2 (07:42→19:49)
[2018-01-19] MEDS: Acetaminophen/HYDROcodone 325-5 MG Tab PO PRN (14:22)
[2018-01-19] MEDS: Mirtazapine 15 MG Tab PO SCH (19:50)
[2018-01-19] MEDS: Zolpidem 5 MG Tab PO PRN (23:05)
[2018-01-20] MEDS: PROBIOTIC GUMMIES PO SCH (06:10)
[2018-01-20] MEDS: Pantoprazole 40 MG Tab.CR PO SCH (06:10)
[2018-01-20] MEDS: atorvaSTATin 10 MG Tab PO SCH (07:23)
[2018-01-20] MEDS: Furosemide 40 MG Tab PO SCH (07:24)
[2018-01-20] MEDS: Metoprolol Tartrate 25 MG Tab PO SCH ×2 (07:24→19:30)
[2018-01-20] MEDS: Acetaminophen 500 MG Tab PO SCH ×2 (07:25→19:30)
[2018-01-20] MEDS: Acetaminophen/HYDROcodone 325-5 MG Tab PO PRN (13:20)
[2018-01-20] MEDS: Mirtazapine 15 MG Tab PO SCH (19:30)
[2018-01-20] MEDS ORDERED: Iopamidol 755 Mg/ML 100 ML Bottle IVPUSH ONE (19:49)
[2018-01-20] MEDS ORDERED: Furosemide 40 MG Tab PO ONE (20:31)
[2018-01-20] MEDS: Acetaminophen/HYDROcodone 325-5 MG Tab PO SCH (21:02)
[2018-01-20] MEDS: Fluconazole 100 MG Tab PO SCH (21:04)
[2018-01-20] MEDS ORDERED: Sodium Chloride 0.9% 10 ML Syringe FLUSH PRN (23:17)
[2018-01-21] MEDS: Acetaminophen/HYDROcodone 325-5 MG Tab PO SCH ×2 (02:56→11:56)
[2018-01-21] MEDS: Pantoprazole 40 MG Tab.CR PO SCH (06:32)
[2018-01-21] MEDS: PROBIOTIC GUMMIES PO SCH (06:32)
[2018-01-21] MEDS: atorvaSTATin 10 MG Tab PO SCH (08:17)
[2018-01-21] MEDS: Fluconazole 100 MG Tab PO SCH (08:18)
[2018-01-21] MEDS: Acetaminophen 325 MG Tab PO SCH (08:18)
[2018-01-21] MEDS: Furosemide 40 MG Tab PO SCH (08:18)
[2018-01-21] MEDS: Metoprolol Tartrate 25 MG Tab PO SCH (08:19)
[2018-01-21] MEDS: Furosemide 20 MG Tab PO SCH (11:54)
[2018-01-21] MEDS ORDERED: Acetaminophen/HYDROcodone 325-5 MG Tab PO ONE (20:00)
[2018-01-21] MEDS ORDERED: Mirtazapine 15 MG Tab PO ONE (20:00)
[2018-01-21] MEDS ORDERED: Metoprolol Tartrate 25 MG Tab PO ONE (20:00)
[2018-01-21] MEDS ORDERED: Acetaminophen 325 MG Tab PO ONE (20:00)
[2018-01-22] MEDS: Acetaminophen 325 MG Tab PO SCH ×3 (02:49→19:22)
[2018-01-22] MEDS: Acetaminophen/HYDROcodone 325-5 MG Tab PO SCH ×5 (02:49→20:23)
[2018-01-22] MEDS: Mirtazapine 15 MG Tab PO SCH ×2 (02:49→19:21)
[2018-01-22] MEDS: Metoprolol Tartrate 25 MG Tab PO SCH ×3 (02:49→19:21)
[2018-01-22] MEDS: PROBIOTIC GUMMIES PO SCH (07:48)
[2018-01-22] MEDS: Fluconazole 100 MG Tab PO SCH (07:49)
[2018-01-22] MEDS: Pantoprazole 40 MG Tab.CR PO SCH (07:50)
[2018-01-22] MEDS: Furosemide 40 MG Tab PO SCH (07:50)
[2018-01-22] MEDS: atorvaSTATin 10 MG Tab PO SCH (07:50)
--- NOTE | 2018-01-22 09:01 | PCM.PN ---
- General Info Date of Service: 01/20/18 Admission Dx/Problem (Free Text): Diarrhea Weakness Functional Status: Reports: Pain Controlled, Tolerating Diet. Denies: Ambulating - Review of Systems General: Reports: Weakness, Fatigue, Malaise. Denies: Fever HEENT: Reports: Sinus Congestion, Rhinitis. Denies: Sore Throat Pulmonary: Reports: Shortness of Breath, Cough. Denies: Sputum Cardiovascular: Denies: Chest Pain, Edema, Lightheadedness Gastrointestinal: Denies: Abdominal Pain, Nausea, Vomiting Genitourinary: Reports: No Symptoms Musculoskeletal: Reports: No Symptoms Skin: Reports: No Symptoms Neurological: Reports: Weakness - Patient Data Vitals - Most Recent: Last Vital Signs Temp 97 F 01/22/18 07:11 Pulse 106 H 01/22/18 07:50 Resp 20 01/22/18 07:11 BP 103/57 L 01/22/18 07:50 Pulse Ox 91 L 01/22/18 07:11 Weight - Most Recent: 109 lb 3.2 oz Lab Results Last 24 Hours: Laboratory Results - last 24 hr 01/21/18 Range/Units 10:40 Urine Color Yellow (YELLOW) Urine Appearance Clear (CLEAR) Urine pH 6.5 (4.5-8.0) Ur Specific [place] 1.015 (1.003-1.020) Urine Protein Negative (NEGATIVE) mg/dL Urine Glucose (UA) Negative (NEGATIVE) mg/dL Urine Ketones Negative (NEGATIVE) mg/dL Urine Occult Blood Small H (NEGATIVE) Urine Nitrite Negative (NEGATIVE) Urine Bilirubin Negative (NEGATIVE) Urine Urobilinogen 0.2 (0.2-1.0) EU/dL Ur Leukocyte Esterase Negative (NEGATIVE) Urine RBC 10-20 H (0-5) /HPF Urine WBC 0-5 (0-5) /HPF Ur Epithelial Cells Few H (NOT SEEN) /HPF Med Orders - Current: Current Medications Acetaminophen (Tylenol) 650 mg PO Q4H PRN PRN Reason: Pain (Mild 1-3)/fever Last Admin: 01/14/18 16:45 Dose: 650 mg Acetaminophen (Tylenol) 650 mg PO BID [facility] Last Admin: 01/22/18 07:49 Dose: 650 mg Hydrocodone Bitart/Acetaminophen ([place] 325-5 Mg) 1 tab PO Q6H SKIP Last Admin: 01/22/18 07:53 Dose: 1 tab Atorvastatin Calcium (Lipitor) 5 mg PO DAILY [facility] Last Admin: 01/22/18 07:50 Dose: 5 mg Fluconazole (Diflucan) 100 mg PO DAILY [facility] Last Admin: 01/22/18 07:49 Dose: 100 mg Furosemide (Lasix) 40 mg PO DAILY [facility] Last Admin: 01/22/18 07:50 Dose: 40 mg Furosemide (Lasix) 20 mg PO DAILY@1200 [facility] Last Admin: 01/21/18 11:54 Dose: 20 mg Metoprolol Tartrate (Lopressor) 12.5 mg PO BID [facility] Last Admin: 01/22/18 07:50 Dose: 12.5 mg Mirtazapine (Remeron) 15 mg PO BEDTIME [facility] Last Admin: 01/22/18 02:49 Dose: Not Given Nitroglycerin (Nitrostat) 0.4 mg SL Q5M PRN PRN Reason: CHEST PAIN Ptom Probiotic (Gummies Chewable) 2 each PO ACBREAKFAST [facility] Last Admin: 01/22/18 07:48 Dose: 2 each Ondansetron HCl (Zofran Odt) 4 mg PO Q4H PRN PRN Reason: nausea, able to take PO Last Admin: 01/14/18 20:37 Dose: 4 mg Ondansetron HCl (Zofran) 4 mg IV Q6H PRN PRN Reason: Nausea/Vomiting Oxyquinoline Sulfate (Bag [place] Oint) 1 oz TOP Q8H PRN PRN Reason: Perineal Comfort Measure Last Admin: 01/13/18 01:00 Dose: 1 applic Pantoprazole Sodium (Protonix) 40 mg PO ACBRK [facility] Last Admin: 01/22/18 07:50 Dose: 40 mg Sodium Chloride (Saline Flush) 10 ml FLUSH ASDIRECTED PRN PRN Reason: Keep Vein Open Sodium Chloride (Saline Flush) 10 ml FLUSH ASDIRECTED PRN PRN Reason: Keep Vein Open Warfarin Sodium (Coumadin) 1 mg PO MoWeFr@1200 [facility] Last Admin: 01/21/18 12:00 Dose: 1 mg Warfarin Sodium (Coumadin) 0.5 mg PO SuTuThSa@1200 [facility] Zolpidem Tartrate (Ambien) 5 mg PO BEDTIME PRN PRN Reason: Sleep Last Admin: 01/19/18 23:05 Dose: 5 mg Discontinued Medications Acetaminophen (Tylenol Extra Strength) 1,000 mg PO BID [facility] Last Admin: 01/20/18 19:30 Dose: 1,000 mg Hydrocodone Bitart/Acetaminophen ([place] 325-5 Mg) 1 tab PO Q6H PRN PRN Reason: Pain Last Admin: 01/20/18 13:20 Dose: 1 tab Ceftriaxone Sodium (Rocephin) 1 gm IVPUSH Q24H [facility] Last Admin: 01/10/18 16:27 Dose: 1 gm Furosemide (Lasix) 40 mg PO ONETIME ONE Stop: 01/20/18 20:32 Last Admin: 01/20/18 21:02 Dose: 40 mg Levofloxacin/Dextrose 250 mg/ (Premix) 50 mls @ 50 mls/hr IV DAILY@1600 [facility] Stop: 01/20/18 17:00 Last Admin: 01/17/18 15:37 Dose: 50 mls/hr Iopamidol (Isovue-370 (76%)) 100 ml IVPUSH ONETIME ONE Stop: 01/20/18 19:50 Last Admin: 01/20/18 20:45 Dose: Not Given Metoprolol Tartrate (Lopressor) 50 mg PO BID [facility] Non-Formulary Medication (Melatonin [Melatonin]) 5 mg PO DAILY [facility] Non-Formulary Medication (Nf Drug) 2 each PO ACBREAKFAST [facility] Warfarin Sodium (Coumadin) 0.5 mg PO SuWeFrSa@1200 [facility] Last Admin: 01/20/18 12:00 Dose: 0.5 mg Warfarin Sodium (Coumadin) 1 mg PO MoTh@1200 [facility] Last Admin: 01/17/18 11:32 Dose: 1 mg - Exam General: Alert, Oriented HEENT: Mucous Membr. Moist/[place] Neck: Supple Lungs: Decreased Breath Sounds, Crackles Cardiovascular: Regular Rate, Regular Rhythm GI/Abdominal Exam: Normal Bowel Sounds, Soft, Non-Tender Extremities: Normal Inspection, No Pedal Edema Skin: Warm, Dry - Problem List & Annotations (1) Shortness of breath SNOMED Code(s): 365152488 Code(s): R06.02 - SHORTNESS OF BREATH Status: Acute Current Visit: Yes (2) Palliative care status SNOMED Code(s): 630505837 Code(s): Z51.5 - ENCOUNTER FOR PALLIATIVE CARE Status: Acute Current Visit: Yes (3) Diarrhea SNOMED Code(s): 73135548 Code(s): R19.7 - DIARRHEA, UNSPECIFIED Status: Acute Current Visit: No Qualifiers: (4) CHF, Congestive heart failure SNOMED Code(s): 83252052 Code(s): I50.9 - HEART FAILURE, UNSPECIFIED Status: Chronic Current Visit : No - Problem List Review Problem List Initiated/Reviewed/Updated: Yes - My Orders Last 24 Hours: My Active Orders 01/21/18 08:00 Acetaminophen [Tylenol] 650 mg PO BID 01/21/18 10:40 UA W/MICROSCOPIC [URIN] Routine 01/21/18 12:00 Furosemide [Lasix] 20 mg PO DAILY@1200 Warfarin [Coumadin] 1 mg PO MoWeFr@1200 01/22/18 12:00 Warfarin [Coumadin] 0.5 mg PO SuTuThSa@1200 01/23/18 05:11 INR,PT,PROTHROMBIN TIME [COAG] Routine - Assessment Assessment:: Weakness Shortness of Breath CHF - Plan Plan:: Saw patient today x2 due to feeling more weak and short of breath. Did have a restless night per nursing staff, up several times to the bathroom and couldn't sleep. More groggy today as a result. She does complain of increased shortness of breath. Oxygen sats are good at 96% on 1 liter. Labs drawn, does have increase in her BNP. WBC is normal. CRP elevated at 24.9. INR 1.96. Chest xray appears unchanged from previous one done several days ago. Stool culture noted to have yeast. Started patient on Diflucan. Increase Coumadin by 1 mg per week. Lasix 40 mg one time additional dose given and increased daily dose by 20 mg. Patient is a vulnerable adult in that she is too weak to be cared for by her daughter at home, often requires 2 for transfer. May need transfer to snf.
--- NOTE | 2018-01-22 09:08 | PCM.PN ---
- General Info Date of Service: 01/22/18 Admission Dx/Problem (Free Text): Diarrhea Weakness Functional Status: Reports: Pain Controlled, Tolerating Diet. Denies: Ambulating - Review of Systems General: Reports: Weakness, Fatigue. Denies: Fever HEENT: Reports: Rhinitis Pulmonary: Reports: Shortness of Breath, Cough. Denies: Sputum Cardiovascular: Denies: Chest Pain, Edema, Lightheadedness Gastrointestinal: Denies: Abdominal Pain, Nausea, Vomiting Genitourinary: Reports: No Symptoms Musculoskeletal: Reports: Other (chest wall pain) Skin: Reports: No Symptoms Neurological: Reports: Weakness - Patient Data Vitals - Most Recent: Last Vital Signs Temp 97 F 01/22/18 07:11 Pulse 106 H 01/22/18 07:50 Resp 20 01/22/18 07:11 BP 103/57 L 01/22/18 07:50 Pulse Ox 91 L 01/22/18 07:11 Weight - Most Recent: 109 lb 3.2 oz Lab Results Last 24 Hours: Laboratory Results - last 24 hr 01/21/18 Range/Units 10:40 Urine Color Yellow (YELLOW) Urine Appearance Clear (CLEAR) Urine pH 6.5 (4.5-8.0) Ur Specific [place] 1.015 (1.003-1.020) Urine Protein Negative (NEGATIVE) mg/dL Urine Glucose (UA) Negative (NEGATIVE) mg/dL Urine Ketones Negative (NEGATIVE) mg/dL Urine Occult Blood Small H (NEGATIVE) Urine Nitrite Negative (NEGATIVE) Urine Bilirubin Negative (NEGATIVE) Urine Urobilinogen 0.2 (0.2-1.0) EU/dL Ur Leukocyte Esterase Negative (NEGATIVE) Urine RBC 10-20 H (0-5) /HPF Urine WBC 0-5 (0-5) /HPF Ur Epithelial Cells Few H (NOT SEEN) /HPF Med Orders - Current: Current Medications Acetaminophen (Tylenol) 650 mg PO Q4H PRN PRN Reason: Pain (Mild 1-3)/fever Last Admin: 01/14/18 16:45 Dose: 650 mg Acetaminophen (Tylenol) 650 mg PO BID [facility] Last Admin: 01/22/18 07:49 Dose: 650 mg Hydrocodone Bitart/Acetaminophen ([place] 325-5 Mg) 1 tab PO Q6H [facility] Last Admin: 01/22/18 07:53 Dose: 1 tab Atorvastatin Calcium (Lipitor) 5 mg PO DAILY [facility] Last Admin: 01/22/18 07:50 Dose: 5 mg Fluconazole (Diflucan) 100 mg PO DAILY [facility] Last Admin: 01/22/18 07:49 Dose: 100 mg Furosemide (Lasix) 40 mg PO DAILY [facility] Last Admin: 01/22/18 07:50 Dose: 40 mg Furosemide (Lasix) 20 mg PO DAILY@1200 [facility] Last Admin: 01/21/18 11:54 Dose: 20 mg Metoprolol Tartrate (Lopressor) 12.5 mg PO BID [facility] Last Admin: 01/22/18 07:50 Dose: 12.5 mg Mirtazapine (Remeron) 15 mg PO BEDTIME [facility] Last Admin: 01/22/18 02:49 Dose: Not Given Nitroglycerin (Nitrostat) 0.4 mg SL Q5M PRN PRN Reason: CHEST PAIN Ptom Probiotic (Gummies Chewable) 2 each PO ACBREAKFAST [facility] Last Admin: 01/22/18 07:48 Dose: 2 each Ondansetron HCl (Zofran Odt) 4 mg PO Q4H PRN PRN Reason: nausea, able to take PO Last Admin: 01/14/18 20:37 Dose: 4 mg Ondansetron HCl (Zofran) 4 mg IV Q6H PRN PRN Reason: Nausea/Vomiting Oxyquinoline Sulfate (Bag [place] Oint) 1 oz TOP Q8H PRN PRN Reason: Perineal Comfort Measure Last Admin: 01/13/18 01:00 Dose: 1 applic Pantoprazole Sodium (Protonix) 40 mg PO ACBRK [facility] Last Admin: 01/22/18 07:50 Dose: 40 mg Sodium Chloride (Saline Flush) 10 ml FLUSH ASDIRECTED PRN PRN Reason: Keep Vein Open Sodium Chloride (Saline Flush) 10 ml FLUSH ASDIRECTED PRN PRN Reason: Keep Vein Open Warfarin Sodium (Coumadin) 1 mg PO MoWeFr@1200 [facility] Last Admin: 01/21/18 12:00 Dose: 1 mg Warfarin Sodium (Coumadin) 0.5 mg PO SuTuThSa@1200 [facility] Zolpidem Tartrate (Ambien) 5 mg PO BEDTIME PRN PRN Reason: Sleep Last Admin: 01/19/18 23:05 Dose: 5 mg Discontinued Medications Acetaminophen (Tylenol Extra Strength) 1,000 mg PO BID [facility] Last Admin: 01/20/18 19:30 Dose: 1,000 mg Hydrocodone Bitart/Acetaminophen ([place] 325-5 Mg) 1 tab PO Q6H PRN PRN Reason: Pain Last Admin: 01/20/18 13:20 Dose: 1 tab Ceftriaxone Sodium (Rocephin) 1 gm IVPUSH Q24H [facility] Last Admin: 01/10/18 16:27 Dose: 1 gm Furosemide (Lasix) 40 mg PO ONETIME ONE Stop: 01/20/18 20:32 Last Admin: 01/20/18 21:02 Dose: 40 mg Levofloxacin/Dextrose 250 mg/ (Premix) 50 mls @ 50 mls/hr IV DAILY@1600 [facility] Stop: 01/20/18 17:00 Last Admin: 01/17/18 15:37 Dose: 50 mls/hr Iopamidol (Isovue-370 (76%)) 100 ml IVPUSH ONETIME ONE Stop: 01/20/18 19:50 Last Admin: 01/20/18 20:45 Dose: Not Given Metoprolol Tartrate (Lopressor) 50 mg PO BID [facility] Non-Formulary Medication (Melatonin [Melatonin]) 5 mg PO DAILY [facility] Non-Formulary Medication (Nf Drug) 2 each PO ACBREAKFAST [facility] Warfarin Sodium (Coumadin) 0.5 mg PO SuWeFrSa@1200 [facility] Last Admin: 01/20/18 12:00 Dose: 0.5 mg Warfarin Sodium (Coumadin) 1 mg PO MoTh@1200 [facility] Last Admin: 01/17/18 11:32 Dose: 1 mg - Exam General: Alert, Oriented HEENT: Mucous Membr. Moist/[place] Neck: Supple Lungs: Decreased Breath Sounds, Crackles Cardiovascular: Regular Rate, Regular Rhythm GI/Abdominal Exam: Normal Bowel Sounds, Soft, Non-Tender Extremities: Normal Inspection, Pedal Edema (trace) Skin: Warm, Dry Neurological: No New Focal Deficit - Problem List & Annotations (1) Shortness of breath SNOMED Code(s): 852481730 Code(s): R06.02 - SHORTNESS OF BREATH Status: Acute Current Visit: Yes (2) Palliative care status SNOMED Code(s): 845746052 Code(s): Z51.5 - ENCOUNTER FOR PALLIATIVE CARE Status: Acute Current Visit: Yes (3) Diarrhea SNOMED Code(s): 24094729 Code(s): R19.7 - DIARRHEA, UNSPECIFIED Status: Acute Current Visit: No Qualifiers: (4) CHF, Congestive heart failure SNOMED Code(s): 59430561 Code(s): I50.9 - HEART FAILURE, UNSPECIFIED Status: Chronic Current Visit : No - Problem List Review Problem List Initiated/Reviewed/Updated: Yes - My Orders Last 24 Hours: My Active Orders 01/21/18 10:40 UA W/MICROSCOPIC [URIN] Routine 01/21/18 12:00 Furosemide [Lasix] 20 mg PO DAILY@1200 Warfarin [Coumadin] 1 mg PO MoWeFr@1200 01/22/18 12:00 Warfarin [Coumadin] 0.5 mg PO SuTuThSa@1200 01/23/18 05:11 INR,PT,PROTHROMBIN TIME [COAG] Routine - Assessment Assessment:: Weakness Shortness of Breath CHF - Plan Plan:: Saw patient today x2 due to feeling more weak and short of breath. Did have a restless night per nursing staff, up several times to the bathroom and couldn't sleep. More groggy today as a result. She does complain of increased shortness of breath. Oxygen sats are good at 96% on 1 liter. Labs drawn, does have increase in her BNP. WBC is normal. CRP elevated at 24.9. INR 1.96. Chest xray appears unchanged from previous one done several days ago. Stool culture noted to have yeast. Started patient on Diflucan. Increase Coumadin by 1 mg per week. Lasix 40 mg one time additional dose given and increased daily dose by 20 mg. Patient is a vulnerable adult in that she is too weak to be cared for by her daughter at home, often requires 2 for transfer. May need transfer to skilled nursing. 01-22-2018 Patient seen today for a 14 day recert. She continues to be very frail. Oriented. She admits she is tired and weak. Does often require 2 for assistance for transfers or the lift at times due to leg weakness. She had increased shortness of breath over the weekend, labs did show a increase in her ProBNP. Increased lasix at that time. She admits she hasn't really noted much of a difference. Continues to require 1 liter of oxygen as her sats will drop to 90% if attempt to wean and she will feel more short of breath. Staff has been in frequency contact with the daughter in regards to home placement versus skilled nursing. Patient does not feel she can return home, daughter not always in agreement with that. Awaiting bed at [facility] before final decision made as no available bed at this time.
[2018-01-22] MEDS: Furosemide 20 MG Tab PO SCH (11:57)
[2018-01-22] MEDS ORDERED: Acetaminophen/HYDROcodone 325-5 MG Tab PO ONE (12:54)
[2018-01-23] MEDS: Acetaminophen/HYDROcodone 325-5 MG Tab PO SCH ×4 (05:55→20:16)
[2018-01-23] MEDS: Pantoprazole 40 MG Tab.CR PO SCH (06:49)
[2018-01-23] MEDS: PROBIOTIC GUMMIES PO SCH (06:49)
[2018-01-23] MEDS: Fluconazole 100 MG Tab PO SCH (07:31)
[2018-01-23] MEDS: Furosemide 40 MG Tab PO SCH (07:31)
[2018-01-23] MEDS: atorvaSTATin 10 MG Tab PO SCH (07:32)
[2018-01-23] MEDS: Metoprolol Tartrate 25 MG Tab PO SCH ×2 (07:34→20:15)
[2018-01-23] MEDS: Acetaminophen 325 MG Tab PO SCH (07:51)
[2018-01-23] MEDS: Furosemide 20 MG Tab PO SCH (12:13)
[2018-01-23] MEDS: Mirtazapine 15 MG Tab PO SCH (20:15)
[2018-01-24] MEDS: Acetaminophen/HYDROcodone 325-5 MG Tab PO SCH ×2 (02:30→08:30)
[2018-01-24] MEDS: Pantoprazole 40 MG Tab.CR PO SCH (06:36)
[2018-01-24] MEDS: PROBIOTIC GUMMIES PO SCH (06:36)
[2018-01-24] MEDS: Metoprolol Tartrate 25 MG Tab PO SCH (08:31)
[2018-01-24] MEDS: Furosemide 40 MG Tab PO SCH (08:31)
[2018-01-24] MEDS: Fluconazole 100 MG Tab PO SCH (08:34)
[2018-01-24 08:35] VITALS: BP 128/73
[2018-01-24] MEDS: atorvaSTATin 10 MG Tab PO SCH (08:35)
== END 2018-01-24 11:15 | DRG 948 ==
LOC: CC.MS 09:03 → CC.FCMC 09:03 → CC.MS 10:14 → UNDOADMIN 10:14 → CC.MS 11:49
PROVIDERS: ADMIT Family Medicine; ATTEND Family Medicine
DX: R53.1 Weakness (principal); B37.89 Other sites of candidiasis; M79.672 Pain in left foot; M25.569 Pain in unspecified knee; R19.7 Diarrhea, unspecified; J31.0 Chronic rhinitis; Z51.5 Encounter for palliative care; I11.0 Hypertensive heart disease with heart failure; I50.9 Heart failure, unspecified
CPT/HCPCS: 36415; 71045; 71046; 73560-LT; 73630-LT; 80048; 80053; 81001; 83735; 83880; 85025; 85379; 85610; 86140; 87045; 87046; 87086; 87088; 87186; 87493; 97110-GP; 97164-GP; 97530-GP; A6250; A9270-GY; J0696; J1956